=== PATIENT | male | born 1930 | race Caucasian/White ===

== ENCOUNTER 2016-07-27 06:02 | Inpatient (IN) | payer OTHER ==
[2016-07-27] VITALS (8 sets, daily range): BP systolic 114–129; BP diastolic 47–64; PULSE 56–67; TEMP 36.5–37.5; O2SAT 90–96; Ht 172.7 cm; Wt 81.7 kg
[~2016-07-27] VITALS: Ht 172.7 cm; Wt 81.7 kg
[~2016-07-27 06:02] MED LIST: HYDC25 PO; LEVO75TA5 PO
[2016-07-27] MEDS ORDERED: ALBUT/IPRATROP 3MG/0.5MG NEB 3 ML VIAL INH STA (06:17)
--- NOTE | 2016-07-27 06:24 | DIAGNOSTIC IMAGING REPORT ---
CHEST ONE VIEW PORTABLE CLINICAL HISTORY: Short of Breath dyspnea COMPARISON STUDY: 05/31/2016 FINDINGS: Small parenchymal infiltrate left base. Nodular density right base most likely overlying breast shadow. Lungs otherwise appear clear. IMPRESSION: Small parenchymal infiltrate left base. Electronically signed by: Fredy Varner M.D. 07/27/2016 6:23 AM Dictated Date/Time: 07/27/2016 6:22 AM
[2016-07-27] MEDS ORDERED: ACETAMINOPHEN 325 MG TAB PO STA (06:33)
[2016-07-27] MEDS ORDERED: SODIUM CHLORIDE 0.9% 1000ML 1,000 ML IV STA (06:33)
[2016-07-27] MEDS ORDERED: SODIUM CHLORIDE 0.9% 500ML 500 ML IV STA (06:42)
[2016-07-27] MEDS ORDERED: PIPERACILLIN/TAZOBACTAM 4.5 GM/100ML D5W IV STA (06:42)
[2016-07-27] MEDS ORDERED: METHYLPREDNISOLONE 125 MG VIAL IV STA (06:42)
[2016-07-27 06:54] LABS: BASO % 0.3 %; BASO ABS # 0.02 K/uL (0-0.2); COMPLETE YES; HEMATOCRIT 38.8 % (42-52); IG% 0.1 %; LYMPH % 36.5 %; LYMPH ABS # 2.55 K/uL (1.2-3.4); MEAN CELL VOLUME 88.6 fL (80-100); MEAN CORPUSCULAR HGB CONC 32.7 g/dl (32-36); MEAN PLATELET VOLUME 9.9 fL (7.4-10.4); MONO % 8.9 %; NEUT % 50.2 %; PLATELET COUNT 160 K/uL (130-400); RED BLOOD COUNT 4.38 M/uL (4.7-6.1); WHITE BLOOD COUNT 6.99 K/uL (4.8-10.8)
[2016-07-27] MEDS ORDERED: GABA-112 PO (06:55)
[2016-07-27 07:04] LABS: PARTIAL THROMBOPLASTIN RATIO 1.2; PROTHROMBIN TIME (PATIENT) 11.1 SECONDS (9.0-12.0)
--- NOTE | 2016-07-27 07:09 | EMERGENCY ROOM VISIT NOTE ---
History Report prepared by Arlyn: Codi Charlton Under the Supervision of: Dr. Adam Faustin M.D. First contact with patient: 06:31 Chief Complaint: SHORTNESS OF BREATH Stated Complaint: SHORTNESS OF BREATH Nursing Triage Summary: SOB, non-productive cough and tachypnea - from the [facility]. History of Present Illness The patient is a 86 year old male who presents to the Emergency Room with complaints of worsening shortness of breath for about 3 days. He reports that his breathing is the worst it has been today. He was brought to the hospital by EMS and received a Duoneb on the way here. He states that the breathing treatments have improved his symptoms. Patient reports he has been coughing. He is shaking but states that it is normal. He denies any vomiting or pain. He states that he has no history of lung disease, COPD, or emphysema. He believes that he has received his flu shot this year. Source of History: patient Onset: 3 days ago Position: other (global) Quality: other (SOB) Modifying Factors (Relieving): other (breathing treatments) Associated Symptoms: + cough, No chest pain, No vomiting Review of Systems See HPI for pertinent positives & negatives. A total of 10 systems reviewed and were otherwise negative. Past Medical & Surgical Medical Problems: (1) Gait disturbance Family History Diabetes mellitus Myocardial infarction Thyroid cancer Social History Smoking Status: Never Smoker Drug Use: none Marital Status: Occupation Status: retired Current/Historical Medications Scheduled Amlodipine (Norvasc), 5 MG PO DAILY Docusate Sodium (Docusate Sodium), 100 MG PO BID Gabapentin (Neurontin), 100 MG PO QAM Gabapentin (Neurontin), 200 MG PO HS Levodopa/Carbidopa (Carbidopa/Levodopa Sr 25-100 mg), 1 TAB PO QID Levothyroxine Sodium (Levothyroxine Sodium), 50 MCG PO DAILY Lisinopril (Zestril), 40 MG PO QAM Tamsulosin Hcl (Flomax), 0.4 MG PO QAM Scheduled PRN Acetaminophen (Tylenol), 650 MG PO Q4H PRN for Pain or Fever Bisacodyl (Dulcolax), 1 SUPP MD PRN PRN for Constipation Magnesium Hydroxide (Milk Of Magnesia), 30 ML PO DAILY PRN for Constipation Senna/Docusate Sod (Senokot S), 1 TAB PO DAILY PRN for Constipation Tramadol (Ultram), 50 MG PO TID PRN Allergies Coded Allergies: No Known Allergies (Verified , 05/31/16) Physical Exam Vital Signs Date Time Temp Pulse Resp B/P Pulse Ox O2 Delivery O2 Flow Rate FiO2 07/27/16 07:01 74 23 147/58 96 Nasal Cannula 2.0 07/27/16 06:40 148/64 99 Nebulizer 07/27/16 06:40 81 20 98 Nasal Cannula 2.0 07/27/16 06:23 Nasal Cannula 2.0 07/27/16 06:20 37.5 07/27/16 06:15 86 07/27/16 06:12 95 Nasal Cannula 2.0 07/27/16 06:10 94 Room Air 07/27/16 06:06 37.3 87 30 140/101 94 Room Air Physical Exam GENERAL: Patient is in no acute distress. HEENT: No acute trauma, normocephalic atraumatic, mucous membranes moist, no nasal congestion, no scleral icterus, shivering. NECK: No stridor, no adenopathy, no meningismus, trachea is midline. LUNGS: Wheezing bilaterally with some bilateral bronchi. Breath sounds equal. increased respiratory rate. moist cough noted. HEART: Unable to auscultate secondary to lung sounds. ABDOMEN: Soft, nontender, bowel sounds positive, no hernias, no peritonitis. EXTREMITIES: No cyanosis, mild bilateral pedal edema, full range of motion of all the joints without pain or difficulty, no signs for acute trauma. NEUROLOGIC: Oriented x 3, no acute motor or sensory deficits, no focal weakness. SKIN: No rash, no jaundice, no diaphoresis. Medical Decision & Procedures ER Provider Diagnostic Interpretation: X-ray results as stated below per interpretation by me and the radiologist: CHEST ONE VIEW PORTABLE CLINICAL HISTORY: Short of Breath dyspnea COMPARISON STUDY: 05/31/2016 FINDINGS: Small parenchymal infiltrate left base. Nodular density right base most likely overlying breast shadow. Lungs otherwise appear clear. IMPRESSION: Small parenchymal infiltrate left base. Electronically signed by: Fredy Varner M.D. 07/27/2016 6:23 AM Dictated Date/Time: 07/27/2016 6:22 AM Laboratory Results 07/27/16 06:35 Red Blood Count 4.38, Mean Corpuscular Volume 88.6, Mean Corpuscular Hemoglobin 29.0, Mean Corpuscular Hemoglobin Concent 32.7, Mean Platelet Volume 9.9, Neutrophils (%) (Auto) 50.2, Lymphocytes (%) (Auto) 36.5, Monocytes (%) (Auto) 8.9, Eosinophils (%) (Auto) 4.0, Basophils (%) (Auto) 0.3, Neutrophils # (Auto) 3.51, Lymphocytes # (Auto) 2.55, Monocytes # (Auto) 0.62, Eosinophils # (Auto) 0.28, Basophils # (Auto) 0.02 07/27/16 06:35 Test 07/27/16 06:14 07/27/16 06:35 07/27/16 06:39 07/27/16 06:45 Bedside Lactic Acid Venous 1.06 mmol/L (0.90-1.70) White Blood Count 6.99 K/uL (4.8-10.8) Red Blood Count 4.38 M/uL (4.7-6.1) Hemoglobin 12.7 g/dL (14.0-18.0) Hematocrit 38.8 % (42-52) Mean Corpuscular Volume 88.6 fL (80-100) Mean Corpuscular Hemoglobin 29.0 pg (25-34) Mean Corpuscular Hemoglobin Concent 32.7 g/dl (32-36) Platelet Count 160 K/uL (130-400) Mean Platelet Volume 9.9 fL (7.4-10.4) Neutrophils (%) (Auto) 50.2 % Lymphocytes (%) (Auto) 36.5 % Monocytes (%) (Auto) 8.9 % Eosinophils (%) (Auto) 4.0 % Basophils (%) (Auto) 0.3 % Neutrophils # (Auto) 3.51 K/uL (1.4-6.5) Lymphocytes # (Auto) 2.55 K/uL (1.2-3.4) Monocytes # (Auto) 0.62 K/uL (0.11-0.59) Eosinophils # (Auto) 0.28 K/uL (0-0.5) Basophils # (Auto) 0.02 K/uL (0-0.2) RDW Standard Deviation 48.9 fL (36.4-46.3) RDW Coefficient of Variation 15.1 % (11.5-14.5) Immature Granulocyte % (Auto) 0.1 % Immature Granulocyte # (Auto) 0.01 K/uL (0.00-0.02) Prothrombin Time 11.1 SECONDS (9.0-12.0) Prothromb Time International Ratio 1.0 (0.9-1.1) Activated Partial Thromboplast Time 31.3 SECONDS (21.0-31.0) Partial Thromboplastin Ratio 1.2 Anion Gap 9.0 mmol/L (3-11) Est Creatinine Clear Calc Drug Dose 41.2 ml/min Estimated GFR () 62.2 Estimated GFR (Non- 53.7 BUN/Creatinine Ratio 15.0 (10-20) Calcium Level 8.6 mg/dl (8.5-10.1) Magnesium Level 2.0 mg/dl (1.8-2.4) Total Bilirubin 0.8 mg/dl (0.2-1) Aspartate Amino Transf (AST/SGOT) 21 U/L (15-37) Alanine Aminotransferase (ALT/SGPT) 13 U/L (12-78) Alkaline Phosphatase 157 U/L (45-117) Troponin I < 0.015 ng/ml (0-0.045) Total Protein 7.2 gm/dl (6.4-8.2) Albumin 3.3 gm/dl (3.4-5.0) Globulin 3.9 gm/dl (2.5-4.0) Albumin/Globulin Ratio 0.8 (0.9-2) Bedside Troponin I 0.000 ng/ml (0-0.045) Laboratory results reviewed by me. Medications Administered Medications (Trade) Dose Ordered Sig/Alcides Route Start Time Stop Time Status Last Admin Dose Admin Albuterol/ Ipratropium 3 ml 3 ml NOW STAT INH 07/27/16 06:17 07/27/16 06:18 DC 07/27/16 06:22 3 ML Sodium Chloride (Nss 1000ml) 1,000 ml @ 125 mls/hr Q8H STAT IV 07/27/16 06:33 07/27/16 14:32 07/27/16 06:59 125 MLS/HR Acetaminophen 650 mg 650 mg NOW STAT PO 07/27/16 06:33 07/27/16 06:34 DC 07/27/16 06:50 650 MG Sodium Chloride (Nss 500ml) 500 ml @ 999 mls/hr Q31M STAT IV 07/27/16 06:42 07/27/16 07:12 DC 07/27/16 06:54 999 MLS/HR Methylprednisolone Sodium Succinate (Solu-Medrol IV) 60 mg NOW STAT IV 07/27/16 06:42 07/27/16 06:44 DC 07/27/16 06:56 60 MG Piperacillin Sod/ Tazobactam Sod (Zosyn Iv) 4.5 gm NOW STAT IV 07/27/16 06:42 07/27/16 06:44 DC 07/27/16 06:56 4.5 GM Levalbuterol (Xopenex 1.25MG/ 0.5ML Neb) 1.25 mg NOW STAT INH 07/27/16 07:29 07/27/16 07:30 DC 07/27/16 07:37 1.25 MG Ipratropium Windber (Atrovent 0.02% 0.5MG/2.5ML Neb) 0.5 mg NOW STAT INH 07/27/16 07:29 07/27/16 07:30 DC 07/27/16 07:36 0.5 MG ECG Indication: SOB/dyspnea Rate (beats per minute): 87 Rhythm: other (Significant baseline artefact making rhythm interpretation impossible. I do suspect atrial fibrillation with LBBB.) Findings: LBBB, other (No obvious ischemia.) ED Course 0617: Duoneb 3 ml INH. 0633: Acetaminophen 650 mg PO. 0636: The patient was evaluated in room A10. A complete history and physical exam was performed. 0642: Zosyn Iv 4.5 gm IV, Solu-Medrol IV 60 mg IV, NSS 500 ml @ 999 mls/hr IV. 0729: Ipratropium Windber 0.5 mg INH, Levalbuterol 1.25 mg INH. 0732: I discussed the patient's case with Dr. Carcamo, [facility] [place]. The patient will be evaluated for further management. 0735: I reevaluated the patient. I updated him and his family on the test results and treatment plan. They verbalized complete understanding and agreement. The patient will be evaluated for further management. Medical Decision Differential diagnoses: pneumonia, influenza, flu-like illness, anemia, electrolyte imbalance, CHF, cardiac ischemia. There is no leukocytosis or concerning anemia. No significant electrolyte abnormality, kidney failure or hepatitis. There is no coagulopathy. EKG shows a presumed atrial fibrillation, no acute ischemic change. There is a left bundle branch block present. Cardiac enzyme testing times one does not suggest acute cardiac injury. Chest x-ray shows a left base pneumonia, no CHF or pneumothorax. Blood cultures are pending. Influenza testing is pending. Lactic acid level is not elevated making severe sepsis less likely. The patient received a DuoNeb prior to arrival. He was given a second upon arrival and then a third breathing treatment during his ER stay. He received IV saline, oral Tylenol, IV Solu-Medrol and IV Zosyn. The patient does seem improved, he seems more comfortable, he is breathing easier. I talked to him and his family about my findings. Given the hypoxia, given his symptoms and his findings, admission/observation is warranted. I spoke with case management. The on-call hospitalist was consulted. Consults Time Called: 728 Consulting Physician: Dr. Carlos Alberto VARGAS, hospitalist Returned Call: 07 I discussed the patient's case with him. The patient will be evaluated for further management. Impression Primary Impression: Hypoxia Additional Impressions: Pneumonia Shortness of breath Scribe Attestation The scribe's documentation has been prepared under my direction and personally reviewed by me in its entirety. I confirm that the note above accurately reflects all work, treatment, procedures, and medical decision making performed by me. Departure Information Dispostion Being Evaluated By Hospitalist Referrals Maria Isabel Leger (PCP) Patient Instructions My [facility] Problem Qualifiers
[2016-07-27] MEDS ORDERED: BISA10SU3 PR (07:13)
[2016-07-27] MEDS ORDERED: MOML PO (07:16)
[2016-07-27 07:17] LABS: ALT/SGPT 13 U/L (12-78); AST/SGOT 21 U/L (15-37); BLOOD UREA NITROGEN 18 mg/dl (7-18); CALCIUM 8.6 mg/dl (8.5-10.1); CARBON DIOXIDE 26 mmol/L (21-32); CHLORIDE 108 mmol/L (98-107); GLUCOSE 97 mg/dl (70-99); POTASSIUM 3.5 mmol/L (3.5-5.1); SODIUM 143 mmol/L (136-145)
[2016-07-27] MEDS ORDERED: SENN-65 PO (07:20)
[2016-07-27 07:22] LABS: ALB/GLOB RATIO 0.8 (0.9-2); ALKALINE PHOSPHATASE 157 U/L (45-117)
[2016-07-27] MEDS ORDERED: IPRATROPIUM BROMIDE NEB SOLN 0.02% 2.5 ML VIAL INH STA (07:29)
[2016-07-27] MEDS ORDERED: LEVALBUTEROL 1.25MG/0.5ML NEB INH STA (07:29)
[2016-07-27] MEDS ORDERED: MAGNESIUM HYDROXIDE SUSP 30 ML UDC PO PRN (08:15)
[2016-07-27] MEDS ORDERED: ALUMINUM/MAGNESIUM/SIMETH (MAALOX MAX) 30 ML UDC PO PRN (08:15)
[2016-07-27] MEDS ORDERED: DOCUSATE SODIUM/SENNA 50/8.6MG TAB PO PRN (08:15)
[2016-07-27] MEDS ORDERED: ONDANSETRON INJ 2 MG/ML 2 ML VIAL IV PRN (08:15)
[2016-07-27] MEDS ORDERED: POLYETHYLENE (MIRALAX) 17 GM PACK PO PRN (08:15)
[2016-07-27] MEDS ORDERED: ACETAMINOPHEN 325 MG TAB PO PRN (08:15)
[2016-07-27] MEDS ORDERED: TRAMADOL HCL 50 MG TAB PO PRN (08:15)
--- NOTE | 2016-07-27 08:47 | History and Physical ---
History & Physical Date & Time of Service: Jul 27, 2016 at 08:21 Chief Complaint: Shortness Of Breath Primary Care Physician: Maria Isabel Leger History of Present Illness Source: patient, family ( ), clinic records, hospital records, custodial Patient is a pleasant 86 y/o male, with PMHx of Parkinson disease, dementia, CKD stage III, HTN, hypothyroidism, BPH, peripheral neuropathy, and h/o colon cancer, who presented to the ED because of SOB and cough x3 days. History came largely from as patient is somnolent and receiving a DuoNeb treatment. Patient currently complains of SOB, which has improved since arrival, and a cough. Symptoms have been progressing over the last 3 days. Per , patient is currently at baseline for mentation. He is at [facility] due to a fall that occurred at the beginning of May. Patient is to be discharged from facility in 1 week. He ambulates well with a walker; although, patient is very fearful of falling now. denies any difficulties with swallowing food/liquids. Denies any hx of COPD/asthma. Denies any cardiac hx. Denies any CP, abdominal pain, nausea/vomiting, urinary symptoms, significant pain. Limited ROS due to patient's mentation/health status. Note: Patient goes by "Edwards" Past Medical/Surgical History Medical hx: 1. Parkinson disease 2. Dementia 3. CKD stage III 4. HTN 5. Hypothyroidism 6. BPH 7. Peripheral neuropathy 8. h/o colon cancer, Family History Diabetes mellitus Myocardial infarction Thyroid cancer Social History Smoking Status: Never Smoker Drug Use: none Marital Status: Housing status: lives alone Occupational Status: retired Immunizations History of Influenza Vaccine: No History of Tetanus Vaccine?: No History of Pneumococcal: No History of Hepatitis B Vaccine: No Multi-Drug Resistant Organisms History of MDRO: No Allergies Coded Allergies: No Known Allergies (Verified , 05/31/16) Home Medications Scheduled Amlodipine (Norvasc), 5 MG PO DAILY Docusate Sodium (Docusate Sodium), 100 MG PO BID Gabapentin (Neurontin), 100 MG PO QAM Gabapentin (Neurontin), 200 MG PO HS Levodopa/Carbidopa (Carbidopa/Levodopa Sr 25-100 mg), 1 TAB PO QID Levothyroxine Sodium (Levothyroxine Sodium), 50 MCG PO DAILY Lisinopril (Zestril), 40 MG PO QAM Tamsulosin Hcl (Flomax), 0.4 MG PO QAM Scheduled PRN Acetaminophen (Tylenol), 650 MG PO Q4H PRN for Pain or Fever Bisacodyl (Dulcolax), 1 SUPP GA PRN PRN for Constipation Magnesium Hydroxide (Milk Of Magnesia), 30 ML PO DAILY PRN for Constipation Senna/Docusate Sod (Senokot S), 1 TAB PO DAILY PRN for Constipation Tramadol (Ultram), 50 MG PO TID PRN Physical Exam Vital Signs Date Time Temp Pulse Resp B/P Pulse Ox O2 Delivery O2 Flow Rate FiO2 07/27/16 07:50 96 Nasal Cannula 2.0 07/27/16 07:01 74 23 147/58 96 Nasal Cannula 2.0 07/27/16 06:40 148/64 99 Nebulizer 07/27/16 06:40 81 20 98 Nasal Cannula 2.0 07/27/16 06:23 Nasal Cannula 2.0 07/27/16 06:20 37.5 07/27/16 06:15 86 07/27/16 06:12 95 Nasal Cannula 2.0 07/27/16 06:10 94 Room Air 07/27/16 06:06 37.3 87 30 140/101 94 Room Air General Appearance: no apparent distress, + pertinent finding (O2 supplement/ DuoNeb treatment on ) Eyes: normal inspection, PERRL ENT: hearing grossly normal Neck: supple Respiratory/Chest: no respiratory distress, no accessory muscle use, + rhonchi (throughout ) Cardiovascular: regular rate, rhythm Abdomen/GI: normal bowel sounds, non tender, soft Extremities/Musculoskelatal: no calf tenderness, + pertinent finding (+1 pitting edema of bilateral lower extremities. TEDs on ) Neurologic/Psych: + pertinent finding (somnolent, easily aroused ) Skin: normal color, warm/dry, no rash Diagnostics Laboratory Results Results Past 24 Hours Test 07/27/16 06:14 07/27/16 06:35 07/27/16 06:39 07/27/16 06:45 Range/Units Bedside Lactic Acid Venous 1.06 0.90-1.70 mmol/L White Blood Count 6.99 4.8-10.8 K/uL Red Blood Count 4.38 4.7-6.1 M/uL Hemoglobin 12.7 14.0-18.0 g/dL Hematocrit 38.8 42-52 % Mean Corpuscular Volume 88.6 80-100 fL Mean Corpuscular Hemoglobin 29.0 25-34 pg Mean Corpuscular Hemoglobin Concent 32.7 32-36 g/dl Platelet Count 160 130-400 K/uL Mean Platelet Volume 9.9 7.4-10.4 fL Neutrophils (%) (Auto) 50.2 % Lymphocytes (%) (Auto) 36.5 % Monocytes (%) (Auto) 8.9 % Eosinophils (%) (Auto) 4.0 % Basophils (%) (Auto) 0.3 % Neutrophils # (Auto) 3.51 1.4-6.5 K/uL Lymphocytes # (Auto) 2.55 1.2-3.4 K/uL Monocytes # (Auto) 0.62 0.11-0.59 K/uL Eosinophils # (Auto) 0.28 0-0.5 K/uL Basophils # (Auto) 0.02 0-0.2 K/uL RDW Standard Deviation 48.9 36.4-46.3 fL RDW Coefficient of Variation 15.1 11.5-14.5 % Immature Granulocyte % (Auto) 0.1 % Immature Granulocyte # (Auto) 0.01 0.00-0.02 K/uL Prothrombin Time 11.1 9.0-12.0 SECONDS Prothromb Time International Ratio 1.0 0.9-1.1 Activated Partial Thromboplast Time 31.3 21.0-31.0 SECONDS Partial Thromboplastin Ratio 1.2 Sodium Level 143 136-145 mmol/L Potassium Level 3.5 3.5-5.1 mmol/L Chloride Level 108 98-107 mmol/L Carbon Dioxide Level 26 21-32 mmol/L Anion Gap 9.0 3-11 mmol/L Blood Urea Nitrogen 18 7-18 mg/dl Creatinine 1.20 0.60-1.40 mg/dl Est Creatinine Clear Calc Drug Dose 41.2 ml/min Estimated GFR () 62.2 Estimated GFR (Non- 53.7 BUN/Creatinine Ratio 15.0 10-20 Random Glucose 97 70-99 mg/dl Calcium Level 8.6 8.5-10.1 mg/dl Magnesium Level 2.0 1.8-2.4 mg/dl Total Bilirubin 0.8 0.2-1 mg/dl Aspartate Amino Transf (AST/SGOT) 21 15-37 U/L Alanine Aminotransferase (ALT/SGPT) 13 12-78 U/L Alkaline Phosphatase 157 45-117 U/L Troponin I < 0.015 0-0.045 ng/ml Total Protein 7.2 6.4-8.2 gm/dl Albumin 3.3 3.4-5.0 gm/dl Globulin 3.9 2.5-4.0 gm/dl Albumin/Globulin Ratio 0.8 0.9-2 Bedside Troponin I 0.000 0-0.045 ng/ml Microbiology Results 07/27/16 Blood Culture, Received Pending 07/27/16 Blood Culture, Received Pending Diagnostic Radiology CHEST ONE VIEW PORTABLE CLINICAL HISTORY: Short of Breath dyspnea COMPARISON STUDY: 05/31/2016 FINDINGS: Small parenchymal infiltrate left base. Nodular density right base most likely overlying breast shadow. Lungs otherwise appear clear. IMPRESSION: Small parenchymal infiltrate left base. Electronically signed by: Fredy Varner M.D. 07/27/2016 6:23 AM Dictated Date/Time: 07/27/2016 6:22 AM The status of this report is Signed. Draft = Not yet reviewed or approved by Radiologist. Signed = Reviewed and approved by Radiologist. EKG TAMJACKIE ID:[id number] 27-JUL-2016 06:03:46 [facility] Poor data quality, interpretation may be adversely affected Wide QRS rhythm with Premature supraventricular complexes Left bundle branch block Abnormal ECG When compared with ECG of 31-MAY-2016 11:37, Wide QRS rhythm has replaced Sinus rhythm 25mm/s 10mm/mV 150Hz 8.0 SP2 12SL 241 SAM: 13 Referred by: Unconfirmed Vent. rate 87 BPM GA interval * ms QRS duration 130 ms QT/QTc 396/476 ms P-R-T axes * -20 137 1928 (86 yr) Male Room:A10 Loc:15 Market Risk Analyst:Alexandria Becerril ind: Impression Assessment and Plan 86 y/o male, with PMHx of parkinsons disease, dementia, CKD stage III, HTN, hypothyroidism, BPH, peripheral neuropathy, and h/o colon cancer, who presented to the ED because of SOB and cough x3 days. Patient is a resident of [facility]. CXR reporting left lung base pneumonia. Pneumonia, left lung base w/ hypoxia: - Admit med/surg - IV Zosyn + Levaquin - DuoNebs QID and q2 hrs - O2 protocol, wean as tolerated - MRSA swab, if + will add Vanco - Treated with IV Solu Medrol 60 mg x1 dose in ED due to wheezing, will continue to monitor for the need of additional steroid treatment - Influenza pending - Blood cultures pending Anemia, baseline hgb 12-13- stable: Follow CBC CKD, stage III- stable: IV NSS x1 bolus + @ 125ml/hr x1 bag. Follow PRP Parkinson disease: Continue Levodopa/Carbidopa 1 tab QID HTN: Continue Amlodipine 5 mg daily, Lisinopril 10 mg QAM Hypothyroidism: Continue Synthroid 50 mcg daily Peripheral neuropathy: Continue Gabapentin 100 mg QAM, 200 mg HS BPH: Continue Flomax 0.4 mg HS GI Prophylaxis: Maalox PRN, IV Zofran PRN, Colace and/or Milk of Mag PRN DVT prophylaxis: Heparin 5000 units SQ q12 hrs, TEODORO and SCDs Code Status: LEVEL I, FULL Dispo: From [facility]. Consulted PT/OT Level of Care Med/Surg Advanced Directives Existing Living Will: Yes Existing Power of Asphalt Blender: Yes Resuscitation Status FULL RESUSCITATION VTE Prophylaxis VTE Risk Assessment Done? Y/N: Yes Risk Level: Moderate Given or contraindicated: Unfractionated heparin SQ, T.E.D. Stockings, SCD's
[2016-07-27] MEDS ORDERED: PIPERACILL/TAZOBAC IV 3.375 GM in DEXTROSE 5% 100ML 100 ML IV SCH (09:00)
[2016-07-27 09:10] LABS: INFLUENZA A PCR Neg for Influ A (NEG); INFLUENZA B PCR Neg for Influ B (NEG)
[2016-07-27] MEDS ORDERED: PIPERACILL/TAZOBAC CONSULT ACTIVE PRN (09:15)
[2016-07-27] MEDS ORDERED: LEVOFLOXACIN CONSULT ACTIVE PRN (09:15)
[2016-07-27] MEDS: LEVOFLOXACIN / D5W 750 MG in PREMIXED IN D5W 150 ML IV SCH (10:07)
[2016-07-27] MEDS: GABAPENTIN 100 MG CAP PO SCH ×2 (10:26→20:28)
[2016-07-27] MEDS: TAMSULOSIN HCL 0.4 MG CAP PO SCH (10:26)
[2016-07-27] MEDS: AMLODIPINE BESYLATE 5 MG TAB PO SCH (10:26)
[2016-07-27] MEDS: CARBIDOPA/LEVODOPA 25/100MG EXT REL TAB PO SCH ×4 (10:26→20:27)
[2016-07-27] MEDS: LISINOPRIL 40 MG TAB PO SCH (10:27)
[2016-07-27] MEDS: HEPARIN SOD 5000 UNIT/0.5 ML CARP SQ SCH ×2 (10:41→20:29)
[2016-07-27] MEDS: ALBUT/IPRATROP 3MG/0.5MG NEB 3 ML VIAL INH SCH ×3 (11:13→19:54)
[2016-07-27] MEDS: PIPERACILL/TAZOBAC IV 3.375 GM in DEXTROSE 5% 100ML 100 ML IV SCH ×2 (12:09→20:26)
[2016-07-28] VITALS (13 sets, daily range): BP systolic 110–146; BP diastolic 58–70; PULSE 51–62; TEMP 36.2–36.8; O2SAT 93–100
[2016-07-28] MEDS: PIPERACILL/TAZOBAC IV 3.375 GM in DEXTROSE 5% 100ML 100 ML IV SCH ×3 (04:29→20:21)
[2016-07-28] MEDS: LEVOTHYROXINE 50 MCG TAB PO SCH (05:41)
[2016-07-28 07:15] LABS: HEMATOCRIT 35.7 % (42-52); MEAN CELL VOLUME 87.7 fL (80-100); MEAN CORPUSCULAR HEMOGLOBIN 28.5 pg (25-34); MEAN CORPUSCULAR HGB CONC 32.5 g/dl (32-36); MEAN PLATELET VOLUME 10.2 fL (7.4-10.4); PLATELET COUNT 165 K/uL (130-400); RED BLOOD COUNT 4.07 M/uL (4.7-6.1)
[2016-07-28] MEDS: ALBUT/IPRATROP 3MG/0.5MG NEB 3 ML VIAL INH SCH ×4 (07:20→19:48)
[2016-07-28 07:53] LABS: BUN/CREATININE RATIO 17.5 (10-20); CALCIUM 8.4 mg/dl (8.5-10.1); CREATININE 1.4 mg/dl (0.60-1.40); POTASSIUM 3.6 mmol/L (3.5-5.1)
[2016-07-28] MEDS: HEPARIN SOD 5000 UNIT/0.5 ML CARP SQ SCH ×2 (08:39→20:32)
[2016-07-28] MEDS: TAMSULOSIN HCL 0.4 MG CAP PO SCH (08:48)
[2016-07-28] MEDS: GABAPENTIN 100 MG CAP PO SCH ×2 (08:49→20:30)
[2016-07-28] MEDS: AMLODIPINE BESYLATE 5 MG TAB PO SCH (08:50)
[2016-07-28] MEDS: CARBIDOPA/LEVODOPA 25/100MG EXT REL TAB PO SCH ×4 (08:51→20:31)
[2016-07-28] MEDS: LISINOPRIL 40 MG TAB PO SCH (08:52)
--- NOTE | 2016-07-28 09:01 | Progress Note ---
Subjective Date of Service: Jul 28, 2016. Subjective Pt evaluation today including: conversation w/ patient, physical exam, lab review, review of inpatient medication list Pain: denies pain PO Intake: adequate Voiding: no voiding problems patient much more alert today compared to time of admission yesterday morning he is awake, alert, oriented x 3 and can recall some details of the days up to admission he is eating well, RN reports no coughing or choking patient would like to get OOB to chair, therapy consulted discussed with RN, asked that we increase his activity, awaiting speech/swallow evaluation Problem List Medical Problems: (1) Fall Status: Acute (2) Hypoxia Status: Acute (3) Pneumonia Status: Acute (4) Shortness of breath Status: Acute Review of Systems Constitutional: + fatigue, + weakness Respiratory: + cough, + dyspnea on exertion Neurologic: + balance problems, + weakness All Other Systems: Reviewed and Negative Medications Current Inpatient Medications Medications (Trade) Dose Ordered Sig/Alcides Route Start Time Stop Time Status Last Admin Dose Admin Acetaminophen (Tylenol Tab) 650 mg Q4H PRN PO 07/27/16 08:15 08/26/16 08:14 Al Hydrox/Mg Hydrox/Simethicone (Maalox Max Susp) 15 ml Q4H PRN PO 07/27/16 08:15 08/26/16 08:14 Magnesium Hydroxide (Milk Of Magnesia Susp) 30 ml Q6H PRN PO 07/27/16 08:15 08/26/16 08:14 Polyethylene (Miralax Powder Packet) 17 gm DAILY PRN PO 07/27/16 08:15 08/26/16 08:14 Ondansetron HCl (Zofran Inj) 4 mg Q6H PRN IV 07/27/16 08:15 08/26/16 08:14 Heparin Sodium (Porcine) (Heparin Sq 5000 Unit/0.5ml) 5,000 unit Q12 SQ 07/27/16 09:45 08/26/16 09:44 07/28/16 08:39 5,000 UNIT Albuterol/ Ipratropium 3 ml 3 ml QIDR INH 07/27/16 12:00 08/26/16 11:59 07/28/16 07:20 3 ML Piperacillin Sod/ Tazobactam Sod/ Dextrose (Zosyn Iv/D5 100ml) 115 ml @ 28.75 mls/ hr Q8H IV 07/27/16 12:00 08/03/16 11:59 07/28/16 04:29 28.75 MLS/HR Amlodipine Besylate (Norvasc Tab) 5 mg DAILY PO 07/27/16 09:00 08/26/16 08:59 07/27/16 10:26 5 MG Gabapentin (Neurontin Cap) 100 mg QAM PO 07/27/16 09:00 08/26/16 08:59 07/27/16 10:26 100 MG Gabapentin (Neurontin Cap) 200 mg HS PO 07/27/16 21:00 08/26/16 20:59 07/27/16 20:28 200 MG Carbidopa/Levodopa (Sinemet Cr 25/ 100MG Tab) 1 tab QID PO 07/27/16 09:00 08/26/16 08:59 07/27/16 20:27 1 TAB Levothyroxine Sodium (Synthroid Tab) 50 mcg DAILYBB PO 07/28/16 06:30 08/27/16 06:59 07/28/16 05:41 50 MCG Lisinopril (Zestril Tab) 40 mg QAM PO 07/27/16 09:00 08/26/16 08:59 07/27/16 10:27 40 MG Senna/Docusate Sodium (Senokot S Tab) 1 tab DAILY PRN PO 07/27/16 08:15 08/26/16 08:14 Tamsulosin HCl (Flomax Cap) 0.4 mg QAM PO 07/27/16 09:00 08/26/16 08:59 07/27/16 10:26 0.4 MG Tramadol HCl 50 mg 50 mg TID PRN PO 07/27/16 08:15 08/26/16 08:14 Levofloxacin/Prmx (Levaquin / D5W/ Premixed D5W) 150 ml @ 100 mls/hr Q48H IV 07/27/16 10:00 08/03/16 09:59 07/27/16 10:07 100 MLS/HR Piperacillin Sod/ Tazobactam Sod (Consult) 1 ea UD PRN N/A 07/27/16 09:15 08/26/16 09:14 Levofloxacin (Consult) 1 ea UD PRN N/A 07/27/16 09:15 4/9/17 09:14 Objective Vital Signs Date Time Temp Pulse Resp B/P Pulse Ox O2 Delivery O2 Flow Rate FiO2 07/28/16 07:44 36.7 60 24 132/70 100 Nasal Cannula 2.0 Mask 07/28/16 07:20 62 16 97 Nasal Cannula 2.0 07/28/16 00:10 97 Nasal Cannula 2.0 07/27/16 23:43 36.6 67 18 129/64 94 Nasal Cannula 2.0 07/27/16 19:54 58 16 95 Nasal Cannula 2.0 07/27/16 15:45 96 Nasal Cannula 2.0 07/27/16 15:32 58 18 96 Nasal Cannula 2.0 07/27/16 15:32 58 18 96 Nasal Cannula 2.0 07/27/16 14:47 36.5 56 18 115/56 96 Nasal Cannula 2.0 07/27/16 11:13 65 20 94 Nasal Cannula 2.0 07/27/16 09:45 37.5 61 20 114/47 90 Nasal Cannula 2.0 07/27/16 09:21 68 21 132/49 97 Physical Exam General Appearance: WD/WN, no apparent distress Eyes: normal inspection, EOMI, sclerae normal Neck: supple, no adenopathy, no JVD, trachea midline Respiratory/Chest: chest non-tender, lungs clear (no wheezing), no respiratory distress, no accessory muscle use, + rhonchi (clear with cough) Cardiovascular: regular rate, rhythm, no gallop, no JVD, no murmur Abdomen: normal bowel sounds, non tender, soft, no organomegaly Extremities: normal range of motion, non-tender, normal inspection, no calf tenderness, pelvis stable, + pedal edema (trace pitting bilaterally in ankles) Neurologic/Psychiatric: director global development II-XII nml as tested, no motor/sensory deficits, alert, normal mood/affect, oriented x 3 Skin: normal color, warm/dry, no rash Lymphatic: no adenopathy Laboratory Results Last 24 Hours Test 07/28/16 06:36 White Blood Count 10.10 K/uL Red Blood Count 4.07 M/uL Hemoglobin 11.6 g/dL Hematocrit 35.7 % Mean Corpuscular Volume 87.7 fL Mean Corpuscular Hemoglobin 28.5 pg Mean Corpuscular Hemoglobin Concent 32.5 g/dl RDW Standard Deviation 48.1 fL RDW Coefficient of Variation 14.9 % Platelet Count 165 K/uL Mean Platelet Volume 10.2 fL Sodium Level 144 mmol/L Potassium Level 3.6 mmol/L Chloride Level 110 mmol/L Carbon Dioxide Level 24 mmol/L Anion Gap 10.0 mmol/L Blood Urea Nitrogen 25 mg/dl Creatinine 1.40 mg/dl Est Creatinine Clear Calc Drug Dose 35.3 ml/min Estimated GFR () 51.6 Estimated GFR (Non- 44.5 BUN/Creatinine Ratio 17.5 Random Glucose 92 mg/dl Calcium Level 8.4 mg/dl Assessment and Plan 86 yo male with h/o Parkinson's disease, admitted from [facility] after three days of cough, dyspnea and increasing lethargy, diagnosed with left lower lobe pneumonia on admission - Health Care Associated Pneumonia: due to living at SNF treat initially with Zosyn and Levaquin IV, continue IV for 24 more hours, then just Levaquin PO to complete 7 days MRSA swab negative so no Vancomycin WBC normal, vitals stable, mild hypoxia speech evaluation for aspiration, does he need diet consistency changed? still awaiting evaluation - Acute hypoxic respiratory failure: due to Pna, wean as tolerated with treatment 97% on 2L, instructed RN to wean off today - Parkinson's: chronic, continue therapy - Metabolic encephalopathy: due to pneumonia, resolved today after 24 hours of antibiotics, back to baseline normal renal function and electrolytes - HTN: BP stable, continue Norvasc and Lisinopril - Hypothyroidism: continue Synthroid - DVT prophylaxis: Heparin Plan: try to d/c in next 24-48 hours, need PT/OT evaluation, overall improving
[2016-07-29] VITALS (8 sets, daily range): BP systolic 111–150; BP diastolic 44–75; PULSE 52–57; TEMP 36.6–37; O2SAT 92–97
[2016-07-29] MEDS: PIPERACILL/TAZOBAC IV 3.375 GM in DEXTROSE 5% 100ML 100 ML IV SCH (04:13)
[2016-07-29] MEDS: LEVOTHYROXINE 50 MCG TAB PO SCH (05:52)
[2016-07-29] MEDS: ALBUT/IPRATROP 3MG/0.5MG NEB 3 ML VIAL INH SCH ×4 (07:31→20:21)
[2016-07-29] MEDS: GABAPENTIN 100 MG CAP PO SCH ×2 (08:41→19:56)
[2016-07-29] MEDS: CARBIDOPA/LEVODOPA 25/100MG EXT REL TAB PO SCH ×4 (08:41→19:55)
[2016-07-29] MEDS: TAMSULOSIN HCL 0.4 MG CAP PO SCH (08:41)
[2016-07-29] MEDS: AMLODIPINE BESYLATE 5 MG TAB PO SCH (08:42)
[2016-07-29] MEDS: LISINOPRIL 40 MG TAB PO SCH (08:42)
[2016-07-29] MEDS: HEPARIN SOD 5000 UNIT/0.5 ML CARP SQ SCH ×2 (08:43→19:57)
[2016-07-29] MEDS: LEVOFLOXACIN / D5W 750 MG in PREMIXED IN D5W 150 ML IV SCH (10:03)
--- NOTE | 2016-07-29 10:44 | Progress Note ---
Subjective Date of Service: Jul 29, 2016. Subjective Pt evaluation today including: conversation w/ patient, physical exam, review of inpatient medication list Pain: no pain PO Intake: adequate Voiding: no voiding problems patient did not sleep well last night, now more tired today per RN, he passed bedside swallow evaluation, but he has been coughing a lot after he eats/swallows will evaluate with video swallow he ambulated 65 feet twice but unsteady, PT recommended rehab again Problem List Medical Problems: (1) Fall Status: Acute (2) Hypoxia Status: Acute (3) Pneumonia Status: Acute (4) Shortness of breath Status: Acute Review of Systems Constitutional: + fatigue, + weakness Respiratory: + cough Neurologic: + weakness All Other Systems: Reviewed and Negative Medications Current Inpatient Medications Medications (Trade) Dose Ordered Sig/Alcides Route Start Time Stop Time Status Last Admin Dose Admin Acetaminophen (Tylenol Tab) 650 mg Q4H PRN PO 07/27/16 08:15 08/26/16 08:14 Al Hydrox/Mg Hydrox/Simethicone (Maalox Max Susp) 15 ml Q4H PRN PO 07/27/16 08:15 08/26/16 08:14 Magnesium Hydroxide (Milk Of Magnesia Susp) 30 ml Q6H PRN PO 07/27/16 08:15 08/26/16 08:14 Polyethylene (Miralax Powder Packet) 17 gm DAILY PRN PO 07/27/16 08:15 08/26/16 08:14 Ondansetron HCl (Zofran Inj) 4 mg Q6H PRN IV 07/27/16 08:15 08/26/16 08:14 Heparin Sodium (Porcine) (Heparin Sq 5000 Unit/0.5ml) 5,000 unit Q12 SQ 07/27/16 09:45 08/26/16 09:44 07/29/16 08:43 5,000 UNIT Albuterol/ Ipratropium 3 ml 3 ml QIDR INH 07/27/16 12:00 08/26/16 11:59 07/29/16 07:31 3 ML Piperacillin Sod/ Tazobactam Sod/ Dextrose (Zosyn Iv/D5 100ml) 115 ml @ 28.75 mls/ hr Q8H IV 07/27/16 12:00 08/03/16 11:59 07/29/16 04:13 28.75 MLS/HR Amlodipine Besylate (Norvasc Tab) 5 mg DAILY PO 07/27/16 09:00 08/26/16 08:59 07/29/16 08:42 5 MG Gabapentin (Neurontin Cap) 100 mg QAM PO 07/27/16 09:00 08/26/16 08:59 07/29/16 08:41 100 MG Gabapentin (Neurontin Cap) 200 mg HS PO 07/27/16 21:00 08/26/16 20:59 07/28/16 20:30 200 MG Carbidopa/Levodopa (Sinemet Cr 25/ 100MG Tab) 1 tab QID PO 07/27/16 09:00 08/26/16 08:59 07/29/16 08:41 1 TAB Levothyroxine Sodium (Synthroid Tab) 50 mcg DAILYBB PO 07/28/16 06:30 08/27/16 06:59 07/29/16 05:52 50 MCG Lisinopril (Zestril Tab) 40 mg QAM PO 07/27/16 09:00 08/26/16 08:59 07/29/16 08:42 40 MG Senna/Docusate Sodium (Senokot S Tab) 1 tab DAILY PRN PO 07/27/16 08:15 08/26/16 08:14 Tamsulosin HCl (Flomax Cap) 0.4 mg QAM PO 07/27/16 09:00 08/26/16 08:59 07/29/16 08:41 0.4 MG Tramadol HCl 50 mg 50 mg TID PRN PO 07/27/16 08:15 08/26/16 08:14 Levofloxacin/Prmx (Levaquin / D5W/ Premixed D5W) 150 ml @ 100 mls/hr Q48H IV 07/27/16 10:00 08/03/16 09:59 07/29/16 10:03 100 MLS/HR Piperacillin Sod/ Tazobactam Sod (Consult) 1 ea UD PRN N/A 07/27/16 09:15 08/26/16 09:14 Levofloxacin (Consult) 1 ea UD PRN N/A 07/27/16 09:15 08/26/16 09:14 Objective Vital Signs Date Time Temp Pulse Resp B/P Pulse Ox O2 Delivery O2 Flow Rate FiO2 07/29/16 07:39 37.0 52 16 111/44 92 Room Air 07/29/16 07:33 52 12 93 Room Air 07/29/16 00:00 96 Room Air 07/28/16 23:26 36.3 56 18 146/63 94 Room Air 07/28/16 19:51 51 12 96 Room Air 07/28/16 19:00 Room Air 07/28/16 15:10 52 16 94 Room Air 07/28/16 14:58 36.2 60 20 110/60 95 Room Air 07/28/16 13:51 97 Nasal Cannula 07/28/16 11:37 36.8 56 24 118/58 95 Nasal Cannula 0.5 07/28/16 11:35 52 16 95 Nasal Cannula 0.5 Physical Exam General Appearance: WD/WN, no apparent distress Eyes: normal inspection, EOMI, sclerae normal ENT: normal ENT inspection, hearing grossly normal, pharynx normal Neck: supple, no adenopathy, no JVD, trachea midline Respiratory/Chest: chest non-tender, no respiratory distress, no accessory muscle use, + decreased breath sounds, + rhonchi Cardiovascular: regular rate, rhythm, no edema, no gallop, no JVD, no murmur Abdomen: normal bowel sounds, non tender, soft, no organomegaly Extremities: normal range of motion, non-tender, normal inspection, no pedal edema, no calf tenderness Neurologic/Psychiatric: older worker specialist II-XII nml as tested, alert, normal mood/affect, oriented x 3, + abnormal gait, + motor weakness Skin: normal color, warm/dry, no rash Lymphatic: no adenopathy Assessment and Plan 86 yo male with h/o Parkinson's disease, admitted from [facility] after three days of cough, dyspnea and increasing lethargy, diagnosed with left lower lobe pneumonia on admission - Health Care Associated Pneumonia: due to living at SNF treat initially with Zosyn and Levaquin IV, change to Levaquin PO to complete 7 days total, today day 3, done on 08/02 MRSA swab negative so no Vancomycin WBC normal, vitals stable, mild hypoxia speech evaluation for aspiration - passed bedside evaluation, however, per RN he keeps coughing after eating will order video swallow for tomorrow - Acute hypoxic respiratory failure: due to Pna, wean as tolerated with treatment 92% on room air today, acute failure resolved - Parkinson's: chronic, continue therapy - Metabolic encephalopathy: due to pneumonia, resolved today after 24 hours of antibiotics, back to baseline normal renal function and electrolytes - HTN: BP stable, continue Norvasc and Lisinopril - Hypothyroidism: continue Synthroid - DVT prophylaxis: Heparin Plan: therapy recommends rehab, should go back to [facility] when medically stable for discharge want to evaluate swallowing with video study tomorrow d/c on Levaquin until 08/02
[2016-07-30] VITALS (11 sets, daily range): BP systolic 137–175; BP diastolic 60–91; PULSE 51–59; TEMP 36.5–36.8; O2SAT 89–98
[2016-07-30] MEDS: ALBUT/IPRATROP 3MG/0.5MG NEB 3 ML VIAL INH SCH ×5 (01:02→19:14)
[2016-07-30] MEDS: LEVOTHYROXINE 50 MCG TAB PO SCH (06:06)
[2016-07-30] MEDS: LISINOPRIL 40 MG TAB PO SCH (08:05)
[2016-07-30] MEDS: TAMSULOSIN HCL 0.4 MG CAP PO SCH (08:05)
[2016-07-30] MEDS: AMLODIPINE BESYLATE 5 MG TAB PO SCH (08:05)
[2016-07-30] MEDS: CARBIDOPA/LEVODOPA 25/100MG EXT REL TAB PO SCH ×4 (08:06→20:58)
[2016-07-30] MEDS: HEPARIN SOD 5000 UNIT/0.5 ML CARP SQ SCH ×2 (08:08→21:00)
[2016-07-30] MEDS: GABAPENTIN 100 MG CAP PO SCH ×2 (08:56→20:57)
--- NOTE | 2016-07-30 11:17 | Progress Note ---
Subjective Date of Service: Jul 30, 2016. Subjective Pt evaluation today including: conversation w/ patient, physical exam, chart review, lab review, review of studies, review of inpatient medication list patient currently on 2L o2 nasal cannula. He does not complain of any chest pain, no sob. Feels fine right now. No urinary or abdominal symptoms reported Per RN report, still coughing a lot even with just his secretions. Awaiting video swallow. Problem List Medical Problems: (1) Fall Status: Acute (2) Hypoxia Status: Acute (3) Pneumonia Status: Acute (4) Shortness of breath Status: Acute Review of Systems All Other Systems: Reviewed and Negative Medications Acetaminophen (Tylenol Tab) 650 mg Q4H PRN PO Last administered on 07/29/16 19:55; Admin Dose 650 MG; Start 07/27/16 at 08:15; Stop 08/26/16 at 08:14 Al Hydrox/Mg Hydrox/Simethicone (Maalox Max Susp) 15 ml Q4H PRN PO; Start 07/27 at 08:15; Stop 08/26/16 at 08:14 Albuterol/ Ipratropium (Duoneb) 3 ml QIDR INH Last administered on 07/30/16 07: 05; Admin Dose 3 ML; Start 07/27/16 at 12:00; Stop 08/26/16 at 11:59 Amlodipine Besylate (Norvasc Tab) 5 mg DAILY PO Last administered on 07/30/16 08:05; Admin Dose 5 MG; Start 07/27/16 at 09:00; Stop 08/26/16 at 08:59 Carbidopa/Levodopa (Sinemet Cr 25/ 100MG Tab) 1 tab QID PO Last administered on 07/30/16 08:06; Admin Dose 1 TAB; Start 07/27/16 at 09:00; Stop 08/26/16 at 08: 59 Gabapentin (Neurontin Cap) 100 mg QAM PO Last administered on 07/30/16 08:56; Admin Dose 100 MG; Start 07/27/16 at 09:00; Stop 08/26/16 at 08:59 Gabapentin (Neurontin Cap) 200 mg HS PO Last administered on 07/29/16 19:56; Admin Dose 200 MG; Start 07/27/16 at 21:00; Stop 08/26/16 at 20:59 Heparin Sodium (Porcine) (Heparin Sq 5000 Unit/0.5ml) 5,000 unit Q12 SQ Last administered on 07/30/16 08:08; Admin Dose 5,000 UNIT; Start 07/27/16 at 09:45 ; Stop 08/26/16 at 09:44 Levofloxacin (Levaquin Tab) 750 mg Q2D@11 PO; Start 07/31/16 at 11:00; Stop at 10:59 Levothyroxine Sodium (Synthroid Tab) 50 mcg DAILYBB PO Last administered on 07/30 06:06; Admin Dose 50 MCG; Start 07/28/16 at 06:30; Stop 08/27/16 at 06:59 Lisinopril (Zestril Tab) 40 mg QAM PO Last administered on 07/30/16 08:05; Admin Dose 40 MG; Start 07/27/16 at 09:00; Stop 08/26/16 at 08:59 Magnesium Hydroxide (Milk Of Magnesia Susp) 30 ml Q6H PRN PO; Start 07/27/16 at 08:15; Stop 08/26/16 at 08:14 Ondansetron HCl (Zofran Inj) 4 mg Q6H PRN IV Last administered on 07/30/16 00: 43; Admin Dose 4 MG; Start 07/27/16 at 08:15; Stop 08/26/16 at 08:14 Polyethylene (Miralax Powder Packet) 17 gm DAILY PRN PO; Start 07/27/16 at 08: 15; Stop 08/26/16 at 08:14 Senna/Docusate Sodium (Senokot S Tab) 1 tab DAILY PRN PO; Start 07/27/16 at 08: 15; Stop 08/26/16 at 08:14 Tamsulosin HCl (Flomax Cap) 0.4 mg QAM PO Last administered on 07/30/16 08:05; Admin Dose 0.4 MG; Start 07/27/16 at 09:00; Stop 08/26/16 at 08:59 Tramadol HCl (Ultram Tab) 50 mg TID PRN PO; Start 07/27/16 at 08:15; Stop at 08:14 Objective Vital Signs Date Time Temp Pulse Resp B/P Pulse Ox O2 Delivery O2 Flow Rate FiO2 07/30/16 10:00 158/78 07/30/16 08:00 98 Nasal Cannula 2.0 07/30/16 07:10 36.7 51 18 175/91 98 07/30/16 07:05 52 16 97 Nasal Cannula 2.0 07/30/16 01:02 58 16 95 Nasal Cannula 2.0 07/30/16 00:55 89 Room Air 07/30/16 00:10 Room Air 07/29/16 23:07 36.6 57 16 149/66 97 Room Air 07/29/16 20:22 57 14 95 Room Air 07/29/16 20:00 Room Air 07/29/16 16:00 Room Air 07/29/16 15:32 36.9 55 18 150/75 94 Room Air 07/29/16 15:21 57 14 95 Room Air Physical Exam Comments: easily arousable, nad, aox3 s1 s2 rrr, no murmurs appreciated right coarse breath sound resolved with coughing, left base rhonchi, no wheezing appreciated abd soft,nt/nd +BS no LE edema Assessment and Plan 1. Acute respiratory hypoxic failure - LLL pneumonia - 2/2 aspirations vs HCAP - on aspiration precautions - for video swallow eval - nebs prn - titrate down O2 supplementation - cont levaquin q2d until 08/02 2. Metabolic encephalopathy - 2/2 pneumonia - resolved 3. Parkinson's - cont sinemet - cont gabapentin 4. HTN - labile - likely from autonomic dysfunction from Parkinson's - cont to monitor - cont amlodipine 5. dvt ppx
--- NOTE | 2016-07-30 15:43 | DIAGNOSTIC IMAGING REPORT ---
VIDEO SWALLOW STUDY CLINICAL HISTORY: Cough with eating. Clinical concern for aspiration. Hypoxia. COMPARISON STUDY: No priors. Fluoroscopy time: 4.5 minutes. FINDINGS: Fluoroscopic guidance was provided to the Department of Speech Pathology in performing a video swallow study. The patient consumed barium-impregnated pudding, cracker with paste, nectar thick liquid, and thin barium while the swallowing mechanism was observed in real-time. There was penetration with silent aspiration seen with thin barium. Pharyngeal penetration was identified with nectar thick liquid. No surekha aspiration was seen. No penetration or aspiration was seen on the cracker with paste and pudding textures. IMPRESSION: 1. Silent aspiration was seen with thin barium. 2. Pharyngeal penetration without aspiration was seen on the nectar thick liquid textures. 3. See dedicated speech pathology report for detailed findings and recommendations. Dictated: 07/30/2016 3:38 PM Transcribed: 07/30/2016 3:42 PM Nathanael Electronically signed by: Adam Dill M.D. 07/30/2016 3:49 PM Dictated Date/Time: 07/30/2016 3:38 PM
[2016-07-31 00:01] VITALS: BP 155/75; PULSE 51; TEMP 37; O2SAT 93
[2016-07-31] MEDS: LEVOTHYROXINE 50 MCG TAB PO SCH (06:04)
[2016-07-31 07:01] VITALS: PULSE 50; O2SAT 91
[2016-07-31] MEDS: ALBUT/IPRATROP 3MG/0.5MG NEB 3 ML VIAL INH SCH ×2 (07:01→11:06)
[2016-07-31 07:27] LABS: BASO % 0.2 %; BASO ABS # 0.01 K/uL (0-0.2); COMPLETE YES; EOS % 7.9 %; HEMATOCRIT 37.8 % (42-52); IG% 0.3 %; LYMPH % 24.8 %; LYMPH ABS # 1.57 K/uL (1.2-3.4); MEAN CELL VOLUME 89.2 fL (80-100); MEAN CORPUSCULAR HEMOGLOBIN 28.1 pg (25-34); MEAN CORPUSCULAR HGB CONC 31.5 g/dl (32-36); MEAN PLATELET VOLUME 9.6 fL (7.4-10.4); MONO % 6.8 %; PLATELET COUNT 182 K/uL (130-400); RED BLOOD COUNT 4.24 M/uL (4.7-6.1); WHITE BLOOD COUNT 6.32 K/uL (4.8-10.8)
[2016-07-31] MEDS: CARBIDOPA/LEVODOPA 25/100MG EXT REL TAB PO SCH ×2 (07:34→12:22)
[2016-07-31] MEDS: GABAPENTIN 100 MG CAP PO SCH (07:34)
[2016-07-31] MEDS: TAMSULOSIN HCL 0.4 MG CAP PO SCH (07:35)
[2016-07-31] MEDS: AMLODIPINE BESYLATE 5 MG TAB PO SCH (07:35)
[2016-07-31] MEDS: LISINOPRIL 40 MG TAB PO SCH (07:35)
[2016-07-31] MEDS: HEPARIN SOD 5000 UNIT/0.5 ML CARP SQ SCH (07:39)
[2016-07-31 07:55] VITALS: BP 180/75; PULSE 51; TEMP 36.8; O2SAT 100
[2016-07-31 07:59] LABS: BUN/CREATININE RATIO 15.8 (10-20); CALCIUM 8.8 mg/dl (8.5-10.1); CREATININE 0.96 mg/dl (0.60-1.40); MAGNESIUM 2.1 mg/dl (1.8-2.4); POTASSIUM 3.8 mmol/L (3.5-5.1)
[2016-07-31 08:02] LABS: ALB/GLOB RATIO 0.7 (0.9-2)
[2016-07-31] MEDS ORDERED: LVQ750 PO (10:19)
--- NOTE | 2016-07-31 10:22 | Discharge Instructions ---
Discharge Instructions Date of Service Jul 31, 2016. Admission Reason for Admission: Hypoxia, Pneumonia Discharge Discharge Diagnosis / Problem: aspiration pneumonia Discharge Goals Goal(s): Improve function, Improve disease control Activity Recommendations Activity Limitations: resume your previous activity Exercise/Sports Limitations: as tolerated . Current Hospital Diet Patient's current hospital diet: AHA Diet (Heart Healthy) Discharge Diet Recommended Diet: N/A (See below) Procedures Procedures Performed: Modified Barium Swallow eval: SUMMARY/RECOMMENDATIONS: This patient presents moderate-severe oral-pharyngeal dysphagia. The following is recommended: 1.Moist mechanical soft diet, NECTAR thick liquids. No mixed consistencies. 2.Aspiration precautions, NO straws. Fully upright for all p.o. intake and for 30-60 minutes after meals. 3.Safe swallow strategies: Small bites, small sips. 2-3 swallows per bite/sip. Stringent oral care in order to reduced oral bacteria that can be aspirated in saliva. Rest breaks. 4.Consultation with a Registered Dietitian for assessing need for supplements. 5.Would benefit from continued speech therapy services dysphagia, with focus on improved swallow initiation time and overall pharyngeal strengthening. Would also benefit from further education and training on diet consistency and safe swallow strategies. Pending Studies Studies pending at discharge: no Medical Emergencies . Who to Call and When: Medical Emergencies: If at any time you feel your situation is an emergency, please call 911 immediately. . Non-Emergent Contact Non-Emergency issues call your: Primary Care Provider . . "Provider Documentation" section prepared by Aleena Briones. VTE Core Measure Inpt VTE Proph given/why not?: Unfractionated heparin Nena VILLARREAL, SCD 's
--- NOTE | 2016-07-31 10:30 | Discharge Summary ---
Discharge Summary Date of Service Jul 31, 2016. Discharge Summary Admission Date: Jul 27, 2016 at 08:20 Discharge Date: Jul 31, 2016 Discharge Disposition: long term facility Principal Diagnosis: aspiration pneumonia Immunizations: Have You Had Influenza Vaccine: No History of Tetanus Vaccine?: No History of Pneumococcal: No History of Hepatitis B Vaccine: No Medication Reconciliation New Medications: Levofloxacin (Levofloxacin) 750 Mg Tab 750 MG PO Q2D@11 for 2 Days, #1 TAB last dose given at [facility] 07/31 should give one more dose on 08/02/16 to complete 7 days Continued Medications: Acetaminophen (Tylenol) 325 Mg Tab 650 MG PO Q4H PRN for Pain or Fever, TAB NEEDED FOR PAIN # 1-5 OR TEMP >101f. MAX APAP= 3GM /24HRS Amlodipine (Norvasc) 5 Mg Tab 5 MG PO DAILY, TAB HOLD FOR AP HR< 50 Bisacodyl (Dulcolax) 10 Mg Sup 1 SUPP AR PRN PRN for Constipation, SUP NEEDED FOR NO BOWEL MOVEMENT DAY 4 Docusate Sodium (Docusate Sodium) 100 Mg Cap 100 MG PO BID, CAP Gabapentin (Neurontin) 100 Mg Cap 100 MG PO QAM, CAP Gabapentin (Neurontin) 100 Mg Cap 200 MG PO HS, CAP Levodopa/Carbidopa (Carbidopa/Levodopa Sr 25-100 mg) 1 Tab Tabcr 1 TAB PO QID Levothyroxine Sodium (Levothyroxine Sodium) 50 Mcg Tab 50 MCG PO DAILY, TAB Lisinopril (Zestril) 40 Mg Tab 40 MG PO QAM, TAB Magnesium Hydroxide (Milk Of Magnesia) 30 Ml Susp 30 ML PO DAILY PRN for Constipation, ML NEEDED FOR NO BOWEL MOVEMENT DAY 3 Senna/Docusate Sod (Senokot S) 1 Tab Tab 1 TAB PO DAILY PRN for Constipation, TAB Tamsulosin Hcl (Flomax) 0.4 Mg Cap 0.4 MG PO QAM, CAP Tramadol (Ultram) 50 Mg Tab 50 MG PO TID PRN, TAB NEEDED FOR PAIN # 6-10. MAX = 400MG/24HRS Hospital Course Patient is a pleasant 86 y/o male, with PMHx of Parkinson disease, dementia, CKD stage III, HTN, hypothyroidism, BPH, peripheral neuropathy, and h/o colon cancer, who presented to the ED because of SOB and cough x3 days. History came largely from as patient is somnolent and receiving a DuoNeb treatment. Patient currently complains of SOB, which has improved since arrival, and a cough. Symptoms have been progressing over the last 3 days. Per , patient is currently at baseline for mentation. He is at [facility] due to a fall that occurred at the beginning of May. Patient is to be discharged from facility in 1 week. He ambulates well with a walker; although, patient is very fearful of falling now. denies any difficulties with swallowing food/liquids. Denies any hx of COPD/asthma. Denies any cardiac hx. Denies any CP, abdominal pain, nausea/vomiting, urinary symptoms, significant pain. Limited ROS due to patient's mentation/health status. During this admission, patient was initially treated with Zosyn and Levaquin for HCAP vs aspiration pneumonia. A video swallow evaluation was performed with reveald mod demetrius-pharyngeal dysphagia with silent aspirations of thin barium. The following recommendations were made for his diet: SUMMARY/RECOMMENDATIONS: This patient presents moderate-severe oral-pharyngeal dysphagia. The following is recommended: 1.Moist mechanical soft diet, NECTAR thick liquids. No mixed consistencies. 2.Aspiration precautions, NO straws. Fully upright for all p.o. intake and for 30-60 minutes after meals. 3.Safe swallow strategies: Small bites, small sips. 2-3 swallows per bite/sip. Stringent oral care in order to reduced oral bacteria that can be aspirated in saliva. Rest breaks. 4.Consultation with a Registered Dietitian for assessing need for supplements. 5.Would benefit from continued speech therapy services dysphagia, with focus on improved swallow initiation time and overall pharyngeal strengthening. Would also benefit from further education and training on diet consistency and safe swallow strategies. Spoke with daughter Sharda Romeo and the above recommendations were relayed. Patient and also initially declined rehabilitation, however, after discussions with them, they've both agreed to a SNF for some rehab. On day of discharge, patient was feeling "good" without any SOB and no chest pain. No abd pain, no other complaints. He is now off of O2 supplementation and saturating well. Vital Signs Date Time Temp Pulse Resp B/P Pulse Ox O2 Delivery O2 Flow Rate FiO2 07/31/16 08:00 Room Air 07/31/16 07:55 36.8 51 17 180/75 100 07/30/16 08:00 2.0 nad, answering questions appropriately and verbalized understanding of his care plan. s1 s2 rrr right basilar rhonchi, no wheezing or crackles on the left side abd distended but non-tender, soft, +BS no LE edema 1. Acute respiratory hypoxic failure - LLL pneumonia - 2/2 aspirations - on aspiration precautions - MBS revealed silent aspiration of thin liquids, see above dietary recommendations - now off O2 supplement - cont levaquin q2d until 08/02 2. Metabolic encephalopathy - 2/2 pneumonia - resolved 3. Parkinson's - cont sinemet - cont gabapentin 4. HTN - labile - likely from autonomic dysfunction from Parkinson's - cont to monitor - cont amlodipine 5. gait dysfunction - SNF with rehab Total Time Spent: Greater than 30 minutes This includes examination of the patient, discharge planning, medication reconciliation, and communication with other providers. Discharge Instructions Please refer to the electronic Patient Visit Report (Discharge Instructions) for additional information. Additional Copies To Maria Isabel Leger
[2016-07-31] MEDS ORDERED: LEVOFLOXACIN 750 MG TAB PO SCH (11:00)
[2016-07-31 11:06] VITALS: PULSE 51; O2SAT 92
[2016-07-31 12:30] VITALS: BP 135/68; PULSE 61
[2016-07-31 12:37] VITALS: BP 180/75; PULSE 51; TEMP 36.8; O2SAT 92
[2016-10-30] MEDS ORDERED: AMLO-110 PO (06:52)
[2016-10-30] MEDS ORDERED: LEVO50TA6 PO (06:56)
[2016-10-30] MEDS ORDERED: TAMS0.4C38 PO (06:57)
[2016-10-30] MEDS ORDERED: DOCU100C31 PO (06:59)
[2016-10-30] MEDS ORDERED: ACET-1311 PO (07:10)
[2016-10-30] MEDS ORDERED: CARB25TA16 PO (11:56)
== END 2016-07-31 15:07 | DRG 193 ==
LOC: ENRESERVTM → ENRESERVDT → EDBD 06:02 → C.EDA 06:02 → C.MS2W 08:20
PROVIDERS: ADMIT Internal Medicine; ATTEND Internal Medicine
DX: J18.9 Pneumonia, unspecified organism (principal); G93.41 Metabolic encephalopathy; J96.01 Acute respiratory failure with hypoxia; J69.0 Pneumonitis due to inhalation of food and vomit; N18.3 Chronic kidney disease, stage 3 (moderate); G20 Parkinson's disease; D64.9 Anemia, unspecified; Y95 Nosocomial condition; F03.90 Unspecified dementia, unspecified severity, without behavioral disturbance, psychotic disturbance, mood disturbance, and anxiety; E03.9 Hypothyroidism, unspecified; N40.0 Benign prostatic hyperplasia without lower urinary tract symptoms; G62.9 Polyneuropathy, unspecified; Z85.038 Personal history of other malignant neoplasm of large intestine; Z91.81 History of falling; I12.9 Hypertensive chronic kidney disease with stage 1 through stage 4 chronic kidney disease, or unspecified chronic kidney disease; G90.8 Other disorders of autonomic nervous system; R26.9 Unspecified abnormalities of gait and mobility; Z79.899 Other long term (current) drug therapy; Z79.891 Long term (current) use of opiate analgesic

== ENCOUNTER → 2016-09-25 | Outpatient (CLI) | payer OTHER ==
[~2016-09-25] MED LIST changes: +ACET-1311 PO; +AMLO-110 PO; +BISA10SU3 PR; +CARB25TA16 PO; +DOCU100C31 PO; +GABA-112 PO; -HYDC25 PO; +LEVO50TA6 PO; -LEVO75TA5 PO; +LISI40TA PO; +LVQ750 PO; +MOML PO; +SENN-65 PO; +SENN1TAB65 PO; +TAMS0.4C38 PO; +TRAM-10 PO
[2016-09-25 18:26] LABS: BLOOD UREA NITROGEN 22 mg/dl (7-18); CALCIUM 9.2 mg/dl (8.5-10.1); CARBON DIOXIDE 27 mmol/L (21-32); CHLORIDE 108 mmol/L (98-107); GLUCOSE 91 mg/dl (70-99); POTASSIUM 4.3 mmol/L (3.5-5.1); SODIUM 143 mmol/L (136-145)
[2016-09-25 18:37] LABS: CHOLESTEROL 139 mg/dl (0-200); CHOLESTEROL/HDL RATIO 2.8; HDL CHOLESTEROL 50 mg/dl; LDL CHOLESTEROL CALCULATED 67 mg/dl; TRIGLYCERIDES 109 mg/dl (0-150); VERY LOW DENSITY LIPOPROT CALC 22 mg/dl
== END | disposition home or self-care (01) ==
LOC: C.LABBFT 09:06
PROVIDERS: ATTEND Nurse Practitioner
DX: R97.20 Elevated prostate specific antigen [PSA] (principal); E03.9 Hypothyroidism, unspecified; I10 Essential (primary) hypertension

== ENCOUNTER 2016-10-30 16:14 | Emergency (ER) | payer OTHER ==
[~2016-10-30] VITALS: Ht 172.7 cm; Wt 78.2 kg
[~2016-10-30 16:14] MED LIST changes: -LISI40TA PO; -SENN1TAB65 PO; -TRAM-10 PO
[2016-10-30 16:22] VITALS: TEMP 37.3; Ht 172.7 cm; Wt 78.2 kg
[2016-10-30 16:49] VITALS: O2SAT 96
[2016-10-30] MEDS ORDERED: SENN1TAB65 PO (16:55)
[2016-10-30] MEDS ORDERED: SODIUM CHLORIDE 0.9% 1000ML 1,000 ML IV STA (16:57)
[2016-10-30 17:31] LABS: BASO % 0.5 %; BASO ABS # 0.04 K/uL (0-0.2); COMPLETE YES; EOS % 4.7 %; HEMATOCRIT 42.1 % (42-52); IG% 0.3 %; LYMPH % 14.9 %; LYMPH ABS # 1.18 K/uL (1.2-3.4); MEAN CELL VOLUME 88.4 fL (80-100); MEAN CORPUSCULAR HEMOGLOBIN 28.8 pg (25-34); MEAN CORPUSCULAR HGB CONC 32.5 g/dl (32-36); MONO % 6.2 %; NEUT % 73.4 %; PLATELET COUNT 183 K/uL (130-400); RED BLOOD COUNT 4.76 M/uL (4.7-6.1); WHITE BLOOD COUNT 7.91 K/uL (4.8-10.8)
--- NOTE | 2016-10-30 17:32 | DIAGNOSTIC IMAGING REPORT ---
CHEST ONE VIEW PORTABLE CLINICAL HISTORY: Acute change in mental status. Shortness of breath. COMPARISON STUDY: 07/27/2016 FINDINGS: The heart remains enlarged. Increased basal markings are likely atelectatic.] The hemidiaphragms likely represents colonic interposition. There is no overt failure.[ IMPRESSION: 1. Cardiomegaly 2. Mild basilar atelectasis 3. Air beneath hemidiaphragms, likely representing colonic interposition, particularly given the lack of reported abdominal symptoms Electronically signed by: Vini Cheung M.D. 10/30/2016 5:30 PM Dictated Date/Time: 10/30/2016 5:29 PM
[2016-10-30 17:37] LABS: PROTHROMBIN TIME (PATIENT) 10.8 SECONDS (9.0-12.0)
[2016-10-30 17:47] LABS: ALT/SGPT 11 U/L (12-78); AST/SGOT 14 U/L (15-37); BLOOD UREA NITROGEN 26 mg/dl (7-18); BUN/CREATININE RATIO 23.2 (10-20); CALCIUM 8.9 mg/dl (8.5-10.1); CARBON DIOXIDE 28 mmol/L (21-32); CHLORIDE 107 mmol/L (98-107); GLUCOSE 106 mg/dl (70-99); POTASSIUM 3.7 mmol/L (3.5-5.1); SODIUM 143 mmol/L (136-145)
[2016-10-30 17:52] LABS: ALB/GLOB RATIO 0.9 (0.9-2); ALKALINE PHOSPHATASE 101 U/L (45-117)
--- NOTE | 2016-10-30 17:52 | DIAGNOSTIC IMAGING REPORT ---
CT HEAD WITHOUT CONTRAST (CT) CLINICAL HISTORY: Acute change in mental status COMPARISON STUDY: No previous studies for comparison. TECHNIQUE: Axial CT of the brain is performed from the vertex to the skull base. IV contrast was not administered for this examination. CT DOSE: 537.48 mGy.cm FINDINGS: No intra or extra-axial mass lesions are visualized. There is no CT evidence of acute cortical infarction. There is no evidence of midline shift. There is no acute hemorrhage. No calvarial fractures are visualized. There are patchy white matter hypodensities likely on a small vessel basis. There is no evidence of pathologic ventricular dilatation. There is a right mastoid effusion. There is an old deformity involving the right lamina papyracea. IMPRESSION: 1. No acute intracranial findings 2. Old deformity involving the right lamina papyracea. 3. Right mastoid effusion. Electronically signed by: Vini Cheung M.D. 10/30/2016 5:50 PM Dictated Date/Time: 10/30/2016 5:48 PM
--- NOTE | 2016-10-30 18:08 | DIAGNOSTIC IMAGING REPORT ---
CT SCAN OF THE ABDOMEN AND PELVIS WITHOUT CONTRAST CLINICAL HISTORY: Generalized abdominal pain and distention COMPARISON STUDY: 2007 TECHNIQUE: CT scan of the abdomen and pelvis was performed from the lung bases to the proximal femurs. Images are reviewed in the axial, sagittal, and coronal planes. IV contrast was not administered for this examination. CT DOSE: 400.03 mGy.cm FINDINGS: Lower chest: There is an enlarging right middle lobe pulmonary nodule which currently measures 13 mm. This previously measured 8 mm. There is bibasal atelectasis. There is mild lower lobe bronchial wall thickening. There is a right lower lobe calcified granuloma. Liver: There is hepatic steatosis. No focal masses are visualized. Gallbladder: Unremarkable. Spleen: Normal in size and attenuation. Pancreas: Unremarkable. Adrenal glands: There is mild adrenal gland thickening. Kidneys: No renal, ureteral, or bladder calculi are visualized. Bowel: There are postsurgical changes of a left midabdominal anastomosis. There is a stable ventral hernia. There is evidence of fecal impaction. The rectum measures 82 mm transversely. There is borderline rectal wall thickening. There are distended small bowel and colonic loops with multiple air-fluid levels. There appears be evidence of a partial colectomy and ileocolonic anastomosis. No pneumatosis is visualized. There is no portal venous gas. Peritoneum: There is no intraperitoneal free air or abdominal ascites. Vasculature: The abdominal aorta is normal in course and caliber. Adenopathy: None. Pelvic viscera: The bladder, and pelvic viscera are unremarkable. Skeletal structures: No destructive osseous lesions are seen. IMPRESSION: 1. Postsurgical changes of a partial colectomy and left ileocolonic anastomosis 2. Fecal impaction with secondary colonic and small bowel dilatation. There are multiple air-fluid levels present. There is no pneumatosis. There is no portal venous gas. 3. The rectum measures a 2 mm transversely. There is borderline wall thickening of the rectosigmoid 4. Stable rectus diastases and ventral hernia. 5. Hepatic steatosis 6. Slowly enlarging 13 mm right middle lobe pulmonary nodule Electronically signed by: Vini Cheung M.D. 10/30/2016 6:07 PM Dictated Date/Time: 10/30/2016 5:59 PM
[2016-10-30] MEDS ORDERED: SOD PHOSPHATE/SOD BIPHOSPHATE ENEMA 132 ML BTL PR STA (18:23)
[2016-10-30 19:24] LABS: URINE APPEARANCE CLEAR (CLEAR); URINE BILIRUBIN NEG (NEG); URINE COLOR YELLOW; URINE NITRITE NEG (NEG); URINE SPECIFIC GRAVITY 1.026 (1.000-1.030); UROBILINOGEN NEG (NEG); ZZUR CULT IF INDIC CLEAN CATCH NO
[2016-10-30 19:26] LABS: MANUAL MICROSCOPIC REQUIRED? NO; REVIEW REQ? NO
[2016-10-30] MEDS ORDERED: GABA-112 PO (19:46)
[2016-10-30] MEDS ORDERED: LISI40TA PO (19:49)
[2016-10-30] MEDS ORDERED: TRAM-10 PO ×2 (19:50→21:12)
--- NOTE | 2016-10-30 20:32 | EMERGENCY ROOM VISIT NOTE ---
History Report prepared by Arlyn: Frankie Larsen Under the Supervision of: Dr. Shayna Jara D.O. First contact with patient: 16:19 Chief Complaint: OTHER COMPLAINT Stated Complaint: WEAKNESS, EVAL. FOR PLACEMENT History of Present Illness The patient is a 86 year old male who presents to the Emergency Room with complaints of intermittent abdominal pain beginning 1.5 days ago. He also complains of abdominal distension and leg swelling. He describes the pain as feeling "sharp". The patient states that the pain would be present for about two minutes, and then gone for about two minutes. He states that his pain began after a bowel movement. He states that his bowel movements have been very "thin " but otherwise normal. The patient denies any black or bloody stools, fevers, chills, chest pain, cough, or SOB. He denies any changes to his medications. His last normal bowel movement was a few hours ago. The patient states that he has been passing gas normally since then. States he is intermittently constipated. He states that he previously had a colostomy bag, but does not know how long it has been since it was present. Pt poor historian. director surface transportation contacted by the [facility] prior to pt arrival in the ED. Property mgr at [facility] where pt resides had concerns about pt's ability to care for himself so called [facility] for evaluation and assistance. Plan has already been made with input from family about placement in a facility for the patient. Pt sent in for medical clearance. Source of History: patient Onset: 1.5 days ago Position: abdomen Symptom Intensity: 2 minutes at a time Quality: sharp Timing: intermittent Associated Symptoms: No fevers, No chills, No cough, No chest pain, No SOB, No melena, No hematochezia Note: The patient also complains of abdominal distension and leg swelling. Review of Systems See HPI for pertinent positives & negatives. A total of 10 systems reviewed and were otherwise negative. Past Medical & Surgical Medical Problems: (1) Gait disturbance Family History Diabetes mellitus Myocardial infarction Thyroid cancer Social History Smoking Status: Never Smoker Drug Use: none Marital Status: Occupation Status: retired Current/Historical Medications Scheduled Amlodipine (Norvasc), 5 MG PO DAILY Docusate Sodium (Docusate Sodium), 100 MG PO BID Gabapentin (Neurontin), 200 MG PO TID Levodopa/Carbidopa (Carbidopa/Levodopa Sr 25-100 mg), 1.5 TABS PO QID Levothyroxine Sodium (Levothyroxine Sodium), 50 MCG PO DAILY Lisinopril (Zestril), 40 MG PO QAM Tamsulosin Hcl (Flomax), 0.4 MG PO QAM Scheduled PRN Acetaminophen (Tylenol), 650 MG PO Q4H PRN for Pain or Fever Sennosides-Docusate Sodium (Senna Plus), 1 TAB PO DAILY PRN for Constipation Tramadol (Ultram), 50 MG PO TID PRN for Pain Tramadol (Ultram), 1 TAB PO Q8 PRN for Pain Allergies Coded Allergies: No Known Allergies (Verified , 05/31/16) Physical Exam Vital Signs Date Time Temp Pulse Resp B/P (MAP) Pulse Ox O2 Delivery O2 Flow Rate FiO2 10/30/16 21:57 66 18 165/86 97 Room Air 10/30/16 20:23 69 18 165/87 96 Room Air 10/30/16 18:33 56 18 155/82 97 Room Air 10/30/16 17:12 56 10/30/16 17:00 60 16 143/69 97 Room Air 10/30/16 16:49 96 Room Air 10/30/16 16:22 37.3 67 18 171/87 95 Room Air Physical Exam GENERAL: alert, unkept appearing, well nourished, no distress, non-toxic EYE EXAM: normal conjunctiva, PERRL and EOM's grossly intact OROPHARYNX: no exudate, no erythema, lips, buccal mucosa, and tongue normal and mucous membranes are moist NECK: supple, no nuchal rigidity, no adenopathy, non-tender LUNGS: Clear to auscultation. Normal chest wall mechanics HEART: no murmurs, S1 normal and S2 normal ABDOMEN: Normo-active bowel sounds, no rebound or guarding. Distended. Tympanitic to percussion. Well healed vertical midline incision as well as a smaller horizontal incision in the left abdomen. No obvious hernia. No palpable mass. BACK: Back is symmetrical on inspection and there is no deformity, no midline tenderness, no CVA tenderness. SKIN: no rashes and no bruising UPPER EXTREMITIES: upper extremities are grossly normal. LOWER EXTREMITIES: 3+ pitting edema bilaterally. Good pulses. Normal capillary refill. NEURO EXAM: Normal sensorium, cranial nerves II-XII grossly intact, normal speech, no gross weakness of arms, no gross weakness of legs. Poor historian. Confused to recent events. Uncertain of why he is here. Medical Decision & Procedures ER Provider Diagnostic Interpretation: Radiology results have been interpreted by the radiologist and reviewed by me. CHEST ONE VIEW PORTABLE FINDINGS: The heart remains enlarged. Increased basal markings are likely atelectatic.] The hemidiaphragms likely represents colonic interposition. There is no overt failure.[ IMPRESSION: 1. Cardiomegaly 2. Mild basilar atelectasis 3. Air beneath hemidiaphragms, likely representing colonic interposition, particularly given the lack of reported abdominal symptoms Electronically signed by: Vini Cheung M.D. CT SCAN OF THE ABDOMEN AND PELVIS WITHOUT CONTRAST FINDINGS: Lower chest: There is an enlarging right middle lobe pulmonary nodule which currently measures 13 mm. This previously measured 8 mm. There is bibasal atelectasis. There is mild lower lobe bronchial wall thickening. There is a right lower lobe calcified granuloma. Liver: There is hepatic steatosis. No focal masses are visualized. Gallbladder: Unremarkable. Spleen: Normal in size and attenuation. Pancreas: Unremarkable. Adrenal glands: There is mild adrenal gland thickening. Kidneys: No renal, ureteral, or bladder calculi are visualized. Bowel: There are postsurgical changes of a left midabdominal anastomosis. There is a stable ventral hernia. There is evidence of fecal impaction. The rectum measures 82 mm transversely. There is borderline rectal wall thickening. There are distended small bowel and colonic loops with multiple air-fluid levels. There appears be evidence of a partial colectomy and ileocolonic anastomosis. No pneumatosis is visualized. There is no portal venous gas. Peritoneum: There is no intraperitoneal free air or abdominal ascites. Vasculature: The abdominal aorta is normal in course and caliber. Adenopathy: None. Pelvic viscera: The bladder, and pelvic viscera are unremarkable. Skeletal structures: No destructive osseous lesions are seen. IMPRESSION: 1. Postsurgical changes of a partial colectomy and left ileocolonic anastomosis 2. Fecal impaction with secondary colonic and small bowel dilatation. There are multiple air-fluid levels present. There is no pneumatosis. There is no portal venous gas. 3. The rectum measures a 2 mm transversely. There is borderline wall thickening of the rectosigmoid 4. Stable rectus diastases and ventral hernia. 5. Hepatic steatosis 6. Slowly enlarging 13 mm right middle lobe pulmonary nodule Electronically signed by: Vini Cheung M.D. CT HEAD WITHOUT CONTRAST (CT) FINDINGS: No intra or extra-axial mass lesions are visualized. There is no CT evidence of acute cortical infarction. There is no evidence of midline shift. There is no acute hemorrhage. No calvarial fractures are visualized. There are patchy white matter hypodensities likely on a small vessel basis. There is no evidence of pathologic ventricular dilatation. There is a right mastoid effusion. There is an old deformity involving the right lamina papyracea. IMPRESSION: 1. No acute intracranial findings 2. Old deformity involving the right lamina papyracea. 3. Right mastoid effusion. Electronically signed by: Vini Cheung M.D. Laboratory Results 10/30/16 17:15 Red Blood Count 4.76, Mean Corpuscular Volume 88.4, Mean Corpuscular Hemoglobin 28.8, Mean Corpuscular Hemoglobin Concent 32.5, Mean Platelet Volume 10.0, Neutrophils (%) (Auto) 73.4, Lymphocytes (%) (Auto) 14.9, Monocytes (%) (Auto) 6.2, Eosinophils (%) (Auto) 4.7, Basophils (%) (Auto) 0.5, Neutrophils # (Auto) 5.81, Lymphocytes # (Auto) 1.18, Monocytes # (Auto) 0.49, Eosinophils # (Auto) 0.37, Basophils # (Auto) 0.04 10/30/16 17:15 Test 10/30/16 17:15 10/30/16 19:13 White Blood Count 7.91 K/uL (4.8-10.8) Red Blood Count 4.76 M/uL (4.7-6.1) Hemoglobin 13.7 g/dL (14.0-18.0) Hematocrit 42.1 % (42-52) Mean Corpuscular Volume 88.4 fL (80-100) Mean Corpuscular Hemoglobin 28.8 pg (25-34) Mean Corpuscular Hemoglobin Concent 32.5 g/dl (32-36) Platelet Count 183 K/uL (130-400) Mean Platelet Volume 10.0 fL (7.4-10.4) Neutrophils (%) (Auto) 73.4 % Lymphocytes (%) (Auto) 14.9 % Monocytes (%) (Auto) 6.2 % Eosinophils (%) (Auto) 4.7 % Basophils (%) (Auto) 0.5 % Neutrophils # (Auto) 5.81 K/uL (1.4-6.5) Lymphocytes # (Auto) 1.18 K/uL (1.2-3.4) Monocytes # (Auto) 0.49 K/uL (0.11-0.59) Eosinophils # (Auto) 0.37 K/uL (0-0.5) Basophils # (Auto) 0.04 K/uL (0-0.2) RDW Standard Deviation 49.1 fL (36.4-46.3) RDW Coefficient of Variation 15.0 % (11.5-14.5) Immature Granulocyte % (Auto) 0.3 % Immature Granulocyte # (Auto) 0.02 K/uL (0.00-0.02) Prothrombin Time 10.8 SECONDS (9.0-12.0) Prothromb Time International Ratio 1.0 (0.9-1.1) Anion Gap 8.0 mmol/L (3-11) Est Creatinine Clear Calc Drug Dose 44.9 ml/min Estimated GFR () 69.1 Estimated GFR (Non- 59.6 BUN/Creatinine Ratio 23.2 (10-20) Lactic Acid Level 1.0 mmol/L (0.4-2.0) Calcium Level 8.9 mg/dl (8.5-10.1) Total Bilirubin 1.1 mg/dl (0.2-1) Aspartate Amino Transf (AST/SGOT) 14 U/L (15-37) Alanine Aminotransferase (ALT/SGPT) 11 U/L (12-78) Alkaline Phosphatase 101 U/L (45-117) Troponin I < 0.015 ng/ml (0-0.045) Total Protein 7.4 gm/dl (6.4-8.2) Albumin 3.5 gm/dl (3.4-5.0) Globulin 3.9 gm/dl (2.5-4.0) Albumin/Globulin Ratio 0.9 (0.9-2) Lipase 108 U/L (73-393) Urine Color YELLOW Urine Appearance CLEAR (CLEAR) Urine pH 5.0 (4.5-7.5) Urine Specific Gore 1.026 (1.000-1.030) Urine Protein NEG (NEG) Urine Glucose (UA) NEG (NEG) Urine Ketones 1+ (NEG) Urine Occult Blood NEG (NEG) Urine Nitrite NEG (NEG) Urine Bilirubin NEG (NEG) Urine Urobilinogen NEG (NEG) Urine Leukocyte Esterase NEG (NEG) Laboratory results per my review. Medications Administered Medications (Trade) Dose Ordered Sig/Alcides Route Start Time Stop Time Status Last Admin Dose Admin Sodium Chloride 1,000 ml @ 125 mls/hr Q8H STAT IV 10/30/16 16:57 10/30/16 22:54 DC 10/30/16 17:20 125 MLS/HR Sodium Biphosphate/ Sodium Phosphate (Fleet Enema) 132 ml NOW STAT AL 10/30/16 18:23 10/30/16 18:24 DC 10/30/16 18:23 132 ML ECG Indication: abdominal pain Rate (beats per minute): 62 Rhythm: normal sinus Findings: 1st degree AV block, LBBB, PVC, no acute ischemic change, other ( Normal QTC) ED Course 1638: The patient was evaluated in room C3. A complete history and physical exam was performed. 165: Ordered Sodium Chloride 1000 ml @ 125 mls/hr IV. 1822: Ordered Fleet Enema 132 mL AL. 1849: I called the patient's on two separate numbers with no answer. 1999: I called and left a message for the patient's daughter. 2004: The patient's daughter, Sharda Romeo, called me back. We discussed the patient's case. She states that the patient sounds to be at his mental baseline. No recent med changes, they help administer meds to him. Hx of constipation. No change in appetite. She notes that the patient should be placed in an assisted care facility. 2014: Upon reevaluation, the patient is feeling better. I examined his abdomen. It is soft and non-tender, but is still distended. He has passed a large amount of stool since his enema. I discussed the findings and the treatment plan with the patient. The patient will be placed in a nursing care facility with assistance from the family caseworker. 2048: The patient was signed out to Dr. Michaud at the change of shift pending longterm placement. Medical Decision Differential diagnosis: Etiologies such as appendicitis, diverticulitis, PUD, biliary pathology, UTI, pancreatitis, obstruction, mesenteric ischemia, aortic pathology, infections, inflammatory bowel disease, renal colic, as well as others were entertained. Fecal impaction resolved and pt passing large amounts of soft brown stool. Pt still with abd distention but no tenderness on repeat exam. Otw well appearing and VS stable. Doubt Chau's, no evidence of obstruction or perf, doubt ischemia, no evidence of acute infectious/inflammatory process. Distention likely chronic given age/comorbidities. Needs close f/u. Sx to watch and return for discussed with pt and placed on DC instructions. I also discussed all results and ddx with daughter over the phone. She acknowledged hx of constipation in pt. Stated they are trying to arrange for home aides for pt and his at home. Doubt vascular etiology, bacteremia/sepsis. Pt with mild dehydration, given IVF while here in ER. Transportation arranged by skilled nursing case manager. Impression Primary Impression: Constipation Additional Impressions: Fecal impaction Dementia Scribe Attestation The scribe's documentation has been prepared under my direction and personally reviewed by me in its entirety. I confirm that the note above accurately reflects all work, treatment, procedures, and medical decision making performed by me. Departure Information Dispostion Still a Patient Prescriptions Tramadol (Ultram) 50 Mg Tab 1 TAB PO Q8 Y for Pain, #6 TAB Prov: Shayna Jara, DO 10/30/16 Referrals Lucila Srivastava, C.R.N.P. (PCP) Patient Instructions My [facility] Additional Instructions Please continue regular medications as prescribed. Please drink plenty of water and consider using a stool softener to have more regular bowel movements and prevent any additional constipation. If you develop any worsening or more consistent abdominal pain, are unable to have a bowel movement, noticed blood with the bowel movement, have increased bloating or distention of her abdomen, develop fevers or chills, chest pain or trouble breathing, or you have any other new concerns, please return the emergency room. Please call and follow up with her family doctor in the next 2-3 days. Problem Qualifiers Primary Impression: Constipation Constipation type: unspecified constipation type Qualified Codes: K59.00 - Constipation, unspecified Additional Impressions: Dementia Dementia type: unspecified type Dementia behavioral disturbance: without behavioral disturbance Qualified Codes: F03.90 - Unspecified dementia without behavioral disturbance
[2016-10-30 21:57] VITALS: BP 165/86; PULSE 66; O2SAT 97
== END 2016-10-30 22:20 | disposition other institution (70) ==
LOC: EDBD 16:14 → C.EDC 16:16
DX: K59.00 Constipation, unspecified (principal); F03.90 Unspecified dementia, unspecified severity, without behavioral disturbance, psychotic disturbance, mood disturbance, and anxiety; R26.9 Unspecified abnormalities of gait and mobility; Z83.3 Family history of diabetes mellitus; Z82.49 Family history of ischemic heart disease and other diseases of the circulatory system; Z80.9 Family history of malignant neoplasm, unspecified; Z79.899 Other long term (current) drug therapy

== ENCOUNTER → 2016-11-07 | Outpatient (CLI) | payer OTHER ==
[~2016-11-07] MED LIST changes: -BISA10SU3 PR; +LISI40TA PO; -LVQ750 PO; -MOML PO; -SENN-65 PO; +SENN1TAB65 PO; +TRAM-10 PO
[2016-11-07 09:08] LABS: HEMATOCRIT 36.8 % (42-52); MEAN CORPUSCULAR HEMOGLOBIN 28.1 pg (25-34); MEAN CORPUSCULAR HGB CONC 31.3 g/dl (32-36); MEAN PLATELET VOLUME 10.8 fL (7.4-10.4); PLATELET COUNT 191 K/uL (130-400); RED BLOOD COUNT 4.09 M/uL (4.7-6.1); WHITE BLOOD COUNT 7.35 K/uL (4.8-10.8)
[2016-11-07 09:18] LABS: CALCIUM 8.4 mg/dl (8.5-10.1)
[2016-11-07 09:20] LABS: BLOOD UREA NITROGEN 39 mg/dl (7-18); BUN/CREATININE RATIO 35.8 (10-20); CARBON DIOXIDE 24 mmol/L (21-32); CHLORIDE 116 mmol/L (98-107); GLUCOSE 87 mg/dl (70-99); POTASSIUM 3.8 mmol/L (3.5-5.1); SODIUM 147 mmol/L (136-145)
== END ==
LOC: C.LABCC 07:51
PROVIDERS: ATTEND Internal Medicine
DX: K59.00 Constipation, unspecified (principal); R14.0 Abdominal distension (gaseous)

== ENCOUNTER → 2016-11-16 | Outpatient (CLI) | payer OTHER ==
--- NOTE | 2016-11-16 14:22 | DIAGNOSTIC IMAGING REPORT ---
VIDEO SWALLOW HISTORY: DYSPHAGIA TECHNIQUE: Video fluoroscopic evaluation of swallowing was performed in the AP and lateral projections by the speech pathology staff. The patient is fed nectar-thick and thin liquid barium. FLUOROSCOPY TIME: 3.7 minutes. A cine loop submitted.. COMPARISON STUDY: None. FINDINGS: There is aspiration with the thin liquid barium only with a delayed cough. There is deep penetration without definite aspiration with the nectar thick liquid barium. Swallowing function was improved with chin tuck maneuver. There is lingual pumping with delay of the initiation of swallowing. Moderate vallecular residue throughout the majority of the examination. IMPRESSION: 1. Waldemar aspiration with the thin liquid barium. 2. Please see the speech pathologist report for detailed findings and recommendations. Electronically signed by: Julius Alejandro M.D. 11/16/2016 2:20 PM Dictated Date/Time: 11/16/2016 2:17 PM
--- NOTE | 2016-11-16 14:32 | SWALLOWING EVALUATION ---
HISTORY: This 86 year-old man, from [facility], was referred for a VFSS at [facility] in order to identify safe consistencies and compensatory strategies for optimal oral intake. The patient has a PMH significant for Parkinson's , dementia, CKD-III, HTN, hypothyroidism, BPH, colon cancer, neuropathy. Currently the patient's diet level is mechanical soft and nectar thin liquids. PROCEDURE: The patient was seen in the Radiology Department of [facility] for the VFSS. Cursory examination of the oral cavity revealed him to be edentulous. Movement of the articulators was impaired as evidenced by reduced ROM noted oral tremor. The patient was seated upright and was viewed in both the Anterior-Posterior (A-P) and Lateral planes. Volitional phonation exercises completed in the A-P plane revealed bilateral vocal fold movement and vocal intensity was reduced. In the lateral plane, the patient was given the following boluses: 1 tsp. thin liquid barium, 1 tsp. nectar-thick liquid barium, single swallow nectar-thick liquid barium self-presented from a cup, sequential swallows nectar-thick liquid barium self-presented from a cup, 1 tsp. barium pudding, and 1 club cracker with barium pudding. The patient was then repositioned into the A-P plane and given 1 tsp. barium pudding. RESULTS: Oral Stage: Labial seal was adequate. Tongue control was adequate. Mastication was disorganized with solid pieces of bolus un-chewed. There was a collection of residue on the oral structures. Swallow was delayed with the bolus head at the posterior surface of the epiglottis with pharyngeal swallow was initiated. With solid foods, mastication was prolonged and multiple swallows were required to clear the bolus from the oral cavity. Pharyngeal Stage: Soft palate elevation was adequate. Laryngeal elevation was minimal. There was partial anterior excursion of the hyoid. Epiglottic movement was complete. Laryngeal vestibular closure was incomplete with a narrow column of contrast in the laryngeal vestibule. Pharyngeal stripping wave was diminished. Pharyngeal contraction was complete. Pharyngoesophageal segment opening was partial with partial obstruction of flow. Tongue base retraction was incomplete with a trace column of contrast between the tongue base and pharyngeal wall. There was a collection of pharyngeal residue in the valleculae and trace amounts in the pyriforms. Patient had aspiration and laryngeal penetration on thin liquids. A cough was initiated; however, it was not strong enough to expel all of the material from the airway. There was laryngeal penetration with nectar thick liquids. A chin tuck was attempted and laryngeal penetration was reduced. Laryngeal movement was reduced decreasing protection of the airway during the swallow. Multiple swallows were required to clear the bolus from the pharyngeal cavity. Esophageal Stage: Esophageal clearance was complete. SUMMARY/RECOMMENDATIONS: This patient presents with moderate-severe oral-pharyngeal dysphagia characterized by aspiration of thin liquids and laryngeal penetration of nectar thick liquids. The following is recommended: 1. Mechanical soft, nectar thick liquids 2. Aspiration precautions: patient should be seated fully upright during and for 30 minutes after meal. NO straws. Take small bites and sips, alternating solids and liquids. 3. Patient would benefit from further EARLY HEAD START DIRECTOR intervention to implement a chin tuck to increase protection of the airway. A summary of the results and recommendations was discussed with the patient however retention and understanding is questionable due to dementia. Thank you for referral of this patient. Please contact me at if any additional information is needed Ilsa Xie [facility]
== END ==
LOC: C.RAD 12:36
PROVIDERS: ATTEND Internal Medicine
DX: T17.920A Food in respiratory tract, part unspecified causing asphyxiation, initial encounter (principal); X58.XXXA Exposure to other specified factors, initial encounter; R13.19 Other dysphagia; R63.3 Feeding difficulties

== ENCOUNTER → 2016-12-04 | Outpatient (CLI) | payer OTHER ==
[2016-12-04 10:20] LABS: BLOOD UREA NITROGEN 19 mg/dl (7-18); BUN/CREATININE RATIO 17.2 (10-20); CALCIUM 8.5 mg/dl (8.5-10.1); CARBON DIOXIDE 33 mmol/L (21-32); CHLORIDE 109 mmol/L (98-107); GLUCOSE 106 mg/dl (70-99); POTASSIUM 3.7 mmol/L (3.5-5.1); SODIUM 143 mmol/L (136-145)
== END ==
LOC: C.LABCC 08:56
PROVIDERS: ATTEND Internal Medicine
DX: K59.00 Constipation, unspecified (principal); R14.0 Abdominal distension (gaseous)

== ENCOUNTER → 2017-02-08 | Outpatient (CLI) | payer OTHER ==
--- NOTE | 2017-02-08 13:17 | DIAGNOSTIC IMAGING REPORT ---
(CHEST) THORAX WITHOUT CLINICAL HISTORY: 86 years-old Male presenting with EVALUATE PULMONARY NODULE, history of right middle lobe nodule. TECHNIQUE: Multidetector CT imaging of the chest was performed without the use of intravenous contrast. IV contrast: None. A dose lowering technique was used consistent with the principles of ALARA (as low as reasonably achievable). COMPARISON: 11/10/2007. CT DOSE (mGy.cm): The estimated cumulative dose is 477.73 mGycm. FINDINGS: Mineral Surveyor topogram: Unremarkable. On soft tissue windows, normal thyroid and thoracic inlet. No axillary, supraclavicular, hilar, or mediastinal lymphadenopathy. Atherosclerosis of the aortic arch. Multichamber enlargement of the heart. Aortic valve and coronary artery calcification. No pericardial or pleural effusion. Extensive streak artifact in the upper abdomen degrades evaluation. On lung windows, respiratory artifact degrades evaluation of the lungs. Dependent opacities likely atelectasis. Bandlike opacity in the left lower lobe likely scarring or atelectasis. 14 mm solid pulmonary nodule in the right middle lobe (series 4 image 176), previously 9 mm. This does not clearly contain fat. This nodule is round with smooth margins. Calcified granulomas noted in the right lower lobe. Central airways patent. On bone windows, degenerative changes of the thoracic spine. Degenerative changes of the glenohumeral joints, left greater than right. IMPRESSION: 1. Interval increase in size of the right middle lobe nodule, which is now 14 mm in diameter. The extended doubling time of this nodule suggests benignity. No new nodule. 2. Cardiomegaly. Please refer to below summary of Fleischner Society 2017 recommendations for follow-up of incidental CT nodules (H Hernan et al. Guidelines for management of incidental pulmonary nodules detected on CT images: From the Fleischner Society 2017. Radiology 2017; 284: 228-243.) SOLID NODULES Single nodule; size < 6 mm * Low risk patients: No routine follow-up * High risk patients: Optional CT at 12 months Single nodule; size 6-8 mm * Low risk patients: CT at 6-12 months, then consider CT at 18-24 months * High risk patients: CT at 6-12 months, then at 18-24 months Single nodule; size > 8 mm * Either low or high risk patients: Considered CT at 3 months, PET/CT, or tissue sampling Multiple nodules; size < 6 mm * Low risk patients: No routine follow up * High risk patients: Optional CT at 12 months Multiple nodules; size 6-8 mm * Low risk patients: CT at 3-6 months, then consider CT at 18-24 months * High risk patients: CT at 3-6 months, then at 18-24 months Multiple nodules; size > 8 mm * Low risk patients: CT at 3-6 months, then consider at 18-24 months * High risk patients: CT at 3-6 months, then at 18-24 months Note: These guidelines apply to incidental nodules. These guidelines do not apply to patients younger than 35 years, immunocompromised patients, or patients with cancer. * Low risk patients: Minimal or absent history of smoking and/or other known risk factors * High risk patients: History of smoking, exposure to other carcinogens, emphysema, fibrosis, upper lobe location, family history of lung cancer, etc. * If a nodule up to 8 mm is partly solid or is ground glass, further follow-up is required after 24 months to exclude possible slow growing adenocarcinoma. SUBSOLID NODULES Single ground-glass nodule * Nodule size < 6 mm: No routine follow-up * Nodule size > or = 6 mm: CT at 6-12 months to confirm persistence, then CT every 2 years until 5 years Single part-solid nodule * Nodule size < 6 mm: No routine follow-up * Nodules size > or = 6 mm: CT at 3-6 months to confirm persistence. If unchanged and solid component remains < 6 mm, annual CT should be performed for 5 years Multiple nodules * Nodule size < 6 mm: CT at 3-6 months. If stable, consider CT at 2 and 4 years. * Nodules size > or = 6 mm: CT at 3-6 months. Subsequent management based on the most suspicious nodule(s) Electronically signed by: Rodri Inman M.D. 02/08/2017 1:16 PM Dictated Date/Time: 02/08/2017 1:09 PM
== END ==
LOC: C.CTS 12:31
PROVIDERS: ATTEND Internal Medicine
DX: R91.8 Other nonspecific abnormal finding of lung field (principal); I51.7 Cardiomegaly

== ENCOUNTER → 2017-04-01 | Outpatient (CLI) | payer OTHER ==
[2017-04-01 17:50] LABS: MEAN CELL VOLUME 89.5 fL (80-100); MEAN CORPUSCULAR HEMOGLOBIN 29.2 pg (25-34); MEAN CORPUSCULAR HGB CONC 32.7 g/dl (32-36); PLATELET COUNT 186 K/uL (130-400); RED BLOOD COUNT 5.03 M/uL (4.7-6.1); WHITE BLOOD COUNT 6.59 K/uL (4.8-10.8)
[2017-04-01 18:02] LABS: ALT/SGPT 10 U/L (12-78); AST/SGOT 16 U/L (15-37); BLOOD UREA NITROGEN 14 mg/dl (7-18); BUN/CREATININE RATIO 13.7 (10-20); CALCIUM 8.9 mg/dl (8.5-10.1); CARBON DIOXIDE 26 mmol/L (21-32); CHLORIDE 107 mmol/L (98-107); CHOLESTEROL 150 mg/dl (0-200); CREATININE 1.05 mg/dl (0.60-1.40); GLUCOSE 105 mg/dl (70-99); SODIUM 142 mmol/L (136-145)
[2017-04-01 18:05] LABS: ALB/GLOB RATIO 0.9 (0.9-2); ALKALINE PHOSPHATASE 101 U/L (45-117); CHOLESTEROL/HDL RATIO 2.6; HDL CHOLESTEROL 57 mg/dl; LDL CHOLESTEROL CALCULATED 74 mg/dl; TRIGLYCERIDES 97 mg/dl (0-150); VERY LOW DENSITY LIPOPROT CALC 19 mg/dl
[2017-04-02 05:58] LABS: ESTIMATED AVERAGE GLUCOSE 97 mg/dl; HA1C FLAG Normal (Normal)
== END | disposition home or self-care (01) ==
LOC: C.LABBFT 15:05
PROVIDERS: ATTEND Nurse Practitioner
DX: R73.01 Impaired fasting glucose (principal); I10 Essential (primary) hypertension

== ENCOUNTER 2017-09-29 05:39 | Emergency (ER) | payer OTHER ==
[~2017-09-29] VITALS: Ht 172.7 cm; Wt 79.3 kg
[2017-09-29 05:42] VITALS: TEMP 36.6; Ht 172.7 cm; Wt 79.3 kg
[2017-09-29 06:45] LABS: BASO % 1.1 %; BASO ABS # 0.06 K/uL (0-0.2); EOS % 7.4 %; EOS ABS # 0.39 K/uL (0-0.5); HEMATOCRIT 44.4 % (42-52); HEMOGLOBIN 14.6 g/dL (14.0-18.0); LYMPH % 26.5 %; MEAN CORPUSCULAR HEMOGLOBIN 29.3 pg (25-34); MEAN CORPUSCULAR HGB CONC 32.9 g/dl (32-36); MEAN PLATELET VOLUME 10.4 fL (7.4-10.4); MONO % 7.4 %; MONO ABS # 0.39 K/uL (0.11-0.59); NEUT % 57.6 %; NEUT ABS # 3.04 K/uL (1.4-6.5); PLATELET COUNT 166 K/uL (130-400); RED CELL DISTRIBUTION WIDTH CV 14.7 % (11.5-14.5); RED CELL DISTRIBUTION WIDTH SD 48.2 fL (36.4-46.3); WHITE BLOOD COUNT 5.28 K/uL (4.8-10.8)
[2017-09-29 07:05] LABS: ALBUMIN 3.4 gm/dl (3.4-5.0); CALCIUM 8.7 mg/dl (8.5-10.1); CREATININE 0.98 mg/dl (0.60-1.40)
[2017-09-29 07:06] VITALS: BP 174/86; PULSE 56; O2SAT 95
[2017-09-29 07:08] LABS: TOTAL PROTEIN 7.3 gm/dl (6.4-8.2)
[2017-09-29] MEDS ORDERED: POLY335019 PO (07:12)
[2017-09-29] MEDS ORDERED: SKINCRE TOP (07:12)
[2017-09-29] MEDS ORDERED: HYDR-5688 PO (07:12)
[2017-09-29] MEDS ORDERED: GABA-113 PO (07:12)
--- NOTE | 2017-09-29 07:27 | EMERGENCY ROOM VISIT NOTE ---
History Report prepared by Arlyn: Vitaliy Alanis Under the Supervision of: Dr. Viviane Collado D.O. First contact with patient: 05:51 Chief Complaint: FALL Stated Complaint: FALL History of Present Illness The patient is an 87 year old male who presents to the Emergency Room via ALS following a falling episode that occurred just prior to arrival. Per hospital nursing staff; the patient was found laying on the floor of his room this morning. The patient is currently complaining of pain in his legs bilaterally from his knees down, which he notes that he has chronically. He denies hitting his head on the fall. EMS believed that the patient was altered, but when the patient's daughter arrived on scene this morning she stated that he has dementia and is at his normal mental status. 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 A total of 10 systems reviewed and were otherwise negative. Past Medical & Surgical Medical Problems: (1) Gait disturbance Family History Diabetes mellitus Myocardial infarction Thyroid cancer Social History Smoking Status: Never Smoker Drug Use: none Marital Status: Occupation Status: retired Current/Historical Medications Scheduled Gabapentin (Neurontin), 300 MG PO TID Levodopa/Carbidopa (Carbidopa/Levodopa Sr 25-100 mg), 1.5 TABS PO QID Levothyroxine Sodium (Levothyroxine Sodium), 50 MCG PO DAILY Lisinopril (Zestril), 40 MG PO QAM Polyethylene Glycol 3350 (Miralax), 17 GM PO DAILY Skin Protectants, Misc. (Dermacerin), 1 APPLN TOP DIRECTED Tamsulosin Hcl (Flomax), 0.4 MG PO QAM Scheduled PRN Acetaminophen (Tylenol), 650 MG PO Q4H PRN for Pain or Fever Hydrocodone/Acetaminophen 5MG/325MG (Canjilon 5MG/325MG), 1 TABLET PO Q6 PRN for Pain Allergies Coded Allergies: No Known Allergies (Verified , 09/29/17) Physical Exam Vital Signs Date Time Temp Pulse Resp B/P (MAP) Pulse Ox O2 Delivery O2 Flow Rate FiO2 09/29/17 07:06 56 16 174/86 95 Room Air 09/29/17 06:38 48 15 95 5/13/18 06:33 178/81 09/29/17 05:48 59 19 177/83 96 Room Air 09/29/17 05:42 36.6 54 20 179/102 97 Room Air Physical Exam General: Patient is pleasantly demented. HEENT: Head - normocephalic and atraumatic Pupils are equal, round, and reactive to light. Extraocular eye muscles are intact, and sclera are anicteric. Nose - moist nasal mucosa without discharge. Mouth - moist buccal mucosa. Oropharynx is nonerythematous and there is no tonsillar exudate or edema noted. Neck: Supple; no JVD, nuchal rigidity, cervical lymphadenopathy. Heart: Regular rate and rhythm. There is a normal S1 and S2 with no murmurs, clicks, or gallops appreciated. Lungs: Clear to auscultation bilaterally with no wheezes, rales, or rhonchi. Abdomen: Soft, completely nontender, nondistended, with good bowel sounds. There are no palpable pulsatile masses or hepatosplenomegaly. There is no guarding, rigidity, or rebound noted. Extremities: No evidence of cyanosis, clubbing, or edema. There are easily palpable peripheral pulses. Skin: warm and dry with good turgor and no rashes. Neuro: Patient is able to move all 4 extremities. He is oriented to person and place. Medical Decision & Procedures Laboratory Results 09/29/17 06:25 Red Blood Count 4.99, Mean Corpuscular Volume 89.0, Mean Corpuscular Hemoglobin 29.3, Mean Corpuscular Hemoglobin Concent 32.9, Mean Platelet Volume 10.4, Neutrophils (%) (Auto) 57.6, Lymphocytes (%) (Auto) 26.5, Monocytes (%) (Auto) 7.4, Eosinophils (%) (Auto) 7.4, Basophils (%) (Auto) 1.1, Neutrophils # (Auto) 3.04, Lymphocytes # (Auto) 1.40, Monocytes # (Auto) 0.39, Eosinophils # (Auto) 0.39, Basophils # (Auto) 0.06 09/29/17 06:25 Test 09/29/17 06:10 09/29/17 06:25 Urine Color YELLOW Urine Appearance CLEAR (CLEAR) Urine pH 5.5 (4.5-7.5) Urine Specific [place] 1.012 (1.000-1.030) Urine Protein NEG (NEG) Urine Glucose (UA) NEG (NEG) Urine Ketones NEG (NEG) Urine Occult Blood NEG (NEG) Urine Nitrite NEG (NEG) Urine Bilirubin NEG (NEG) Urine Urobilinogen NEG (NEG) Urine Leukocyte Esterase NEG (NEG) White Blood Count 5.28 K/uL (4.8-10.8) Red Blood Count 4.99 M/uL (4.7-6.1) Hemoglobin 14.6 g/dL (14.0-18.0) Hematocrit 44.4 % (42-52) Mean Corpuscular Volume 89.0 fL (80-100) Mean Corpuscular Hemoglobin 29.3 pg (25-34) Mean Corpuscular Hemoglobin Concent 32.9 g/dl (32-36) Platelet Count 166 K/uL (130-400) Mean Platelet Volume 10.4 fL (7.4-10.4) Neutrophils (%) (Auto) 57.6 % Lymphocytes (%) (Auto) 26.5 % Monocytes (%) (Auto) 7.4 % Eosinophils (%) (Auto) 7.4 % Basophils (%) (Auto) 1.1 % Neutrophils # (Auto) 3.04 K/uL (1.4-6.5) Lymphocytes # (Auto) 1.40 K/uL (1.2-3.4) Monocytes # (Auto) 0.39 K/uL (0.11-0.59) Eosinophils # (Auto) 0.39 K/uL (0-0.5) Basophils # (Auto) 0.06 K/uL (0-0.2) RDW Standard Deviation 48.2 fL (36.4-46.3) RDW Coefficient of Variation 14.7 % (11.5-14.5) Immature Granulocyte % (Auto) 0.0 % Immature Granulocyte # (Auto) 0.00 K/uL (0.00-0.02) Anion Gap 5.0 mmol/L (3-11) Est Creatinine Clear Calc Drug Dose 49.4 ml/min Estimated GFR () 78.9 Estimated GFR (Non- 68.1 BUN/Creatinine Ratio 19.9 (10-20) Calcium Level 8.7 mg/dl (8.5-10.1) Total Bilirubin 1.1 mg/dl (0.2-1) Aspartate Amino Transf (AST/SGOT) 15 U/L (15-37) Alanine Aminotransferase (ALT/SGPT) 10 U/L (12-78) Alkaline Phosphatase 96 U/L (45-117) Total Protein 7.3 gm/dl (6.4-8.2) Albumin 3.4 gm/dl (3.4-5.0) Globulin 3.9 gm/dl (2.5-4.0) Albumin/Globulin Ratio 0.9 (0.9-2) Laboratory results per my review. ED Course 0553: Past medical records reviewed. The patient was evaluated in room A12B. A complete history and physical exam was performed. Labs were drawn as above. A urine specimen was obtained. 0653: The family has arrived to bedside at this time. They are convinced that he slid out of bed this morning and did not experience any significant trauma. The nurses noted that he has significant skin breakdown on his buttocks and perineum. They family explains that they have medicine from the [facility] to remedy this issue. Case management met with the patient and the family to see if there are any home services that could be offered. 0718: I reviewed the laboratory studies and urine specimen results with the patient and his family. The patient and family are in agreement with the treatment plan. He will be discharged home. Medical Decision The patient is an 87 year old male who presents to the Emergency Room via ALS following a falling episode Differential Diagnosis includes; mechanical fall, syncope, dizziness, UTI, and electrolyte abnormality. Laboratory results were reviewed and show; normal white count, normal hemoglobin and hematocrit, BUN of 19, creatinine of 0.9, glucose of 88, normal LFTs. Urinalysis was reviewed and is negative. This is an 87-year-old male patient who slid out of bed this evening. He denies any complaints of pain. The patient does suffer from dementia. He has no outward signs of trauma. Laboratory testing and urinalysis were performed and were unremarkable. The patient does have moderate skin breakdown about the buttocks and perineum. He will require close follow-up with his PCP and possible referral to wound care. In the meantime, the family will apply a cream they received from the [facility] for this specific purpose. Medication Reconcilliation Current Medication List: was personally reviewed by me Blood Pressure Screening Patient's blood pressure: Elevated blood pressure Blood pressure disposition: Referred to PCP Impression Primary Impression: Fall from bed Scribe Attestation The scribe's documentation has been prepared under my direction and personally reviewed by me in its entirety. I confirm that the note above accurately reflects all work, treatment, procedures, and medical decision making performed by me. Departure Information Dispostion Home / Self-Care Referrals Fito Hernandez M.D. (PCP) Forms HOME CARE DOCUMENTATION FORM, IMPORTANT VISIT INFORMATION Patient Instructions My [facility] Additional Instructions Follow up with PCP if you have any further symptoms from the fall. Your BP was high - please have it rechecked by PCP. Problem Qualifiers Primary Impression: Fall from bed Encounter type: initial encounter Qualified Codes: W06.XXXA - Fall from bed , initial encounter
== END 2017-09-29 07:24 | disposition home or self-care (01) ==
LOC: C.EDA 05:39 → EDBD 05:39 → C.EDA 07:24
DX: M79.604 Pain in right leg (principal); M79.605 Pain in left leg; M25.561 Pain in right knee; M25.562 Pain in left knee; W06.XXXA Fall from bed, initial encounter; F03.90 Unspecified dementia, unspecified severity, without behavioral disturbance, psychotic disturbance, mood disturbance, and anxiety; Z83.3 Family history of diabetes mellitus; Z80.8 Family history of malignant neoplasm of other organs or systems; Z82.49 Family history of ischemic heart disease and other diseases of the circulatory system

== ENCOUNTER → 2017-10-01 | Outpatient (CLI) | payer OTHER ==
[~2017-10-01] MED LIST changes: -AMLO-110 PO; -DOCU100C31 PO; -GABA-112 PO; +GABA-113 PO; +HYDR-5688 PO; +POLY335019 PO; -SENN1TAB65 PO; +SKINCRE TOP; -TRAM-10 PO
[2017-10-01 16:54] LABS: BASO % 0.9 %; BASO ABS # 0.05 K/uL (0-0.2); EOS % 8.7 %; EOS ABS # 0.49 K/uL (0-0.5); HEMATOCRIT 44.3 % (42-52); HEMOGLOBIN 14.1 g/dL (14.0-18.0); IG# 0.01 K/uL (0.00-0.02); LYMPH % 32.6 %; LYMPH ABS # 1.83 K/uL (1.2-3.4); MEAN CORPUSCULAR HGB CONC 31.8 g/dl (32-36); MEAN PLATELET VOLUME 10.5 fL (7.4-10.4); MONO % 6.2 %; MONO ABS # 0.35 K/uL (0.11-0.59); NEUT % 51.4 %; NEUT ABS # 2.89 K/uL (1.4-6.5); PLATELET COUNT 169 K/uL (130-400); RED CELL DISTRIBUTION WIDTH CV 15.1 % (11.5-14.5); RED CELL DISTRIBUTION WIDTH SD 51.1 fL (36.4-46.3); WHITE BLOOD COUNT 5.62 K/uL (4.8-10.8)
[2017-10-01 17:07] LABS: ALBUMIN 3.3 gm/dl (3.4-5.0); ALT/SGPT 9 U/L (12-78); AST/SGOT 11 U/L (15-37); BLOOD UREA NITROGEN 22 mg/dl (7-18); CALCIUM 8.7 mg/dl (8.5-10.1); CARBON DIOXIDE 29 mmol/L (21-32); CREATININE 1.09 mg/dl (0.60-1.40); GLUCOSE 105 mg/dl (70-99); SODIUM 144 mmol/L (136-145)
[2017-10-01 17:17] LABS: ALKALINE PHOSPHATASE 97 U/L (45-117); TOTAL PROTEIN 7.1 gm/dl (6.4-8.2)
[2017-10-02 06:17] LABS: HEMOGLOBIN A1C 5.1 % (4.5-5.6)
== END | disposition home or self-care (01) ==
LOC: C.LABBFT 14:40
PROVIDERS: ATTEND Nurse Practitioner
DX: E03.9 Hypothyroidism, unspecified (principal); R73.01 Impaired fasting glucose; I10 Essential (primary) hypertension